=== PATIENT | female | born 1955 | race Caucasian/White ===

== ENCOUNTER → 2020-05-18 10:37 | Outpatient (BNVA) | payer MEDICARE, MEDICAID, SELFPAY | PROVIDERS: PCP Family Medicine; Visit Provider Nurse Practitioner Family | DX: E11.9 Type 2 diabetes mellitus without complications (principal); I10 Essential (primary) hypertension; G47.33 Obstructive sleep apnea (adult) (pediatric); M25.561 Pain in right knee; M25.562 Pain in left knee; I25.10 Atherosclerotic heart disease of native coronary artery without angina pectoris; K21.9 Gastro-esophageal reflux disease without esophagitis; I48.0 Paroxysmal atrial fibrillation; E55.9 Vitamin D deficiency, unspecified | CPT/HCPCS: 80053; 80061; 82043; 82306; 83036; 84443; 85025 ==

== ENCOUNTER 2020-06-28 20:00 | Outpatient (CLI) | payer MEDICARE, MEDICAID, SELFPAY | END 2020-06-28 20:01 | disposition home or self-care (01) | LOC: SLEEP 06-29 10:21 | PROVIDERS: PCP Family Medicine; Visit Provider Nurse Practitioner Family | DX: G47.33 Obstructive sleep apnea (adult) (pediatric) (principal) | CPT/HCPCS: 95811 ==

== ENCOUNTER → 2020-06-29 17:13 | Outpatient (BNVA) | payer MEDICARE, MEDICAID, SELFPAY | PROVIDERS: PCP Family Medicine; Visit Provider Nurse Practitioner Family | DX: R10.12 Left upper quadrant pain (principal) | CPT/HCPCS: 80053; 82150; 83690; 85025 ==

== ENCOUNTER 2020-07-06 12:59 | Outpatient (CLI) | payer MEDICARE, MEDICAID, SELFPAY ==
--- NOTE | 2020-07-06 14:30 | CT_ITS ---
WS: [id number] CT ABDOMEN PELVIS TECHNIQUE: Noncontrast CT of the abdomen and pelvis with coronal and sagittal reformatted images. CLINICAL INFORMATION: LUQ abdominal pain; left low back pain COMPARISON: 5 5014 DLP: 1191.[address] scans at [facility] use at least one of these dose optimization techniques: automat ed exposure control; mA and/or kV adjustment per patient size (includes targeted exams where dose is matched to clinical indication); or iterative reconstruction. FINDINGS: Diffuse fatty infiltration liver. Cholecystectomy clips. Normal spleen. Lung bases are well aerated. Adrenal glands are normal. No hydronephrosis. A few prominent lymph nodes in the lázaro hepatis likel y reactive. No obstructing renal or ureteral calculi. No hydronephrosis. Normal caliber abdominal aor ta. Shotty periaortic lymph nodes. Prior hysterectomy and appendectomy. Incidental fat-containing umb ilical hernia. Small esophageal hiatal hernia. Rotational abnormalities of the intestines as previously described with Cecum just the left of midline with the remainder the colon left side of the abdomen. Majority of the small bowel right side of the abdomen. No small or large bowel obstruction. Sigmoid diverticulosis. No evidence of acute diverticulitis. No free fluid in the abdomen or pelvis. No inguinal lymphadenopathy. Disc osteophyte bulging L2-3 with mild central canal stenosis. CT/CT abdomen pelvis wo con [id number] IMPRESSION: 1. No obstructing renal or ureteral calculi. No hydronephrosis. 2. Diffuse fatty infiltration liver. 3. Cholecystectomy clips. 4. Diverticulosis. No evidence of acute diverticulitis. No other significant f indings.
== END 2020-07-06 13:00 | disposition home or self-care (01) ==
LOC: RADWPI 13:06
PROVIDERS: PCP Family Medicine; Visit Provider Nurse Practitioner Family
DX: R10.12 Left upper quadrant pain (principal); M54.5 Low back pain; K76.0 Fatty (change of) liver, not elsewhere classified; K57.90 Diverticulosis of intestine, part unspecified, without perforation or abscess without bleeding
CPT/HCPCS: 74176

== ENCOUNTER 2020-07-21 11:02 | Outpatient (CLI) | payer MEDICARE, MEDICAID, SELFPAY ==
--- NOTE | 2020-07-21 11:00 | MM_ITS ---
WS: [id number] BILATERAL SCREENING DIGITAL MAMMOGRAM WITH CAD HISTORY: screening COMPARISON: 10/06/2018 Bilateral CC and MLO views submitted. Computer aided detection analyzed. Breast composition: There are scattered areas of fibroglandular density. No suspicious masses, microc alcifications or architectural distortion. Benign calcification LEFT breast. MM/[place] [id number] IMPRESSION: BI-RADS: 2-Benign FOLLOW UP: 1 Year Follow-up
== END 2020-07-21 11:03 | disposition home or self-care (01) ==
LOC: RADSHAW 11:02
PROVIDERS: PCP Nurse Practitioner Family; Visit Provider Nurse Practitioner Family
DX: Z12.31 Encounter for screening mammogram for malignant neoplasm of breast (principal)
CPT/HCPCS: 77067

== ENCOUNTER 2020-09-19 07:54 | Outpatient (CLI) | payer MEDICARE, MEDICAID, SELFPAY ==
[2020-09-19 08:24] VITALS: BMI 37.1
--- NOTE | 2020-09-19 09:26 | NMCV_ITS ---
NM papo perf SPECT r/s* [id number] Talia Abbasi Age: 64 Gender: F : 1955 Exam Date: 09/19/2020 09:16 Ordering Phys: Federico Morrison M.D ([email or web address]) Technologist: ROEL Garcias Exam Location: [facility] Indications: CHEST PAIN STRESS TEST Please [facility] IMAGE PROTOCOL Rest/Stress 1 Lexiscan Day Radiopharmaceutical Dose (mCi) Administration Site Administered by Rest: Tc-99m 10.8 IV ROEL Garcias Sestamibi Stress:Tc-99m 32.7 IV OREL Garcias Sestamibi Rest: 19-Sep-2020 60 Discovery 630 Stress: 19-Sep-2020 30 Discovery 630 0.4mg Lexiscan. Supine position only as patient was unable to lay prone. SPECT RESULTS Technical Quality: Excellent Raw Data Analysis: Normal Image Corrections: No attenuation or motion correction applied Summed Stress Score: 0 Summed Rest Score: 0 Summed Difference Score: 0 PERFUSION FINDINGS There is a medium sized, anterior wall reversible perfusion defect noted. Rest of myocardium has homogenous radiotracer uptake. FUNCTIONAL RESULTS (calculated via Gated SPECT) Stress Image LV EF (%): 78 Stress EDV (mL):99 TID: 0.98 Stress ESV (mL):22 FUNCTIONAL FINDINGS: LV systolic function is normal with EF of 78% IMPRESSIONS 1. Myocardial perfusion imaging shows anterior wall reversible defect in the anterior wall. This likely represents ischemia. Clinical correlation is required. 2. LV systolic function is normal with EF of 78% stenosis. Federico Morrison MD (Electronically Signed) Final Date: 21 September 2020 19:18 S
--- NOTE | 2020-09-19 09:26 | ECG_ITS ---
[facility] Test Date: 2020-09-19 Pat Name: Talia Abbasi Department: Room: Gender: Female Sas Bi Developer: Margareth Alvarado : 1955 Requested By: Federico Morrison Order Number: [id number] Steve MD: Federico Morrison M.D. Interpretive Statements NAME OF STUDY: LEXISCAN SESTAMIBI STRESS TEST INDICATION: [Chest Pain, ] Procedure: The baseline blood pressure was 147/89 mmHg with a heart rate of 80 bpm. The electrocardiogram showed normal sinus rhythm with normal ST and T's. The Lexiscan was infused for a duration of 20 seconds. A total of 0.4 mg of Lexiscan was infused. The stress phase was continued for a total of 5 minutes. Heart rate at end of stress phase was 94 bpm, with a blood pressure 127/76 mmHg. The EKG at the peak infusion revealed sinus rhythm with no significant ST-T wave changes. Sestamibi was injected 20 seconds after Lexiscan infusion. Blood pressure at the end of recovery phase was 133/79 mmHg with a heart rate of 88 bpm. No significant changes during recovery phase. Conclusion: 1. Normal EKG response to Lexiscan infusion. 2. No Lexiscan induced chest pain or cardiac arrhythmia. 3. Normal blood pressure and heart rate response. 4. Sestamibi/sestamibi perfusion scan pending; see separate report. Electronically Signed On 09-22-2020 19:10:34 CULINARY ART TEACHER by Federico Morrison M.D. [id number]
[2020-09-19 10:22] VITALS: BP 137/90; PULSE 99
[2020-09-19] MEDS: regadenoson 0.4 Mg/5 ml Syringe IVP (10:22)
--- NOTE | 2020-09-19 11:45 | USCV_ITS ---
Ayleen Talia Age: 64 Gender: F : 1955 Exam Date: 09/19/2020 08:14 Ordering Phys: Federico Morrison M.D ([email or web address]) Technologist: Danna Falcon [place] [facility] [place]ication: SOB Risk Factors: Previous Vascular Surgery: Right Brachial BP: / Left Brachial BP: / Right Left Velocity (cm/s) Spectral Plaque Velocity (cm/s) Spectral Plaque Syst/Diast Broadening Syst/Diast Broadening 97.40/ 29.10 Prox CCA 88.10 / 27.60 73.50/ 22.20 Mid CCA 102.50/ 25.00 74.30/ 25.60 Distal CCA 60.70 / 20.50 41.00/ 18.80 Prox ICA 64.90 / 24.80 87.20/ 35.00 Mid ICA 70.90 / 30.80 80.30/ 39.30 Distal ICA 55.50 / 24.80 88.00 ECA 37.50 1.19 ICA/CCA 0.69 Antegrade Vertebral Antegrade 54.70/ 14.50 cm/s 25.60/ 7.70 cm/s Tri Subclavian Tri 99.90 87.20 FINDINGS Minimal plaques at the bifurcations bilaterally. Intimal thickening in the common carotid arteries bilaterally. Antegrade flow in the vertebral arteries bilaterally. Normal Doppler flow velocities in the external carotid arteries bilaterally CONCLUSIONS Minimal plaques at the bifurcations bilaterally Intimal thickening in the common carotid arteries bilaterally. No significant stenosis, based on the above findings. Dr Abe Lopez MD [facility] (Electronically Signed) Final Date: 19 September 2020 19:08 S
--- NOTE | 2020-09-19 12:30 | USCV_ITS ---
Talia Abbasi Age: 64 Gender: F : 1955 Exam Date: 09/19/2020 08:51 Ordering Phys: Federico Morrison M.D ([email or web address]) Technologist: Vlad Hernandez Exam Location: [facility] [place] Indication: CHEST PAIN BP: 132 / 74 HR: 76 Rhythm: Sinus Technical Quality: Fair MEASUREMENTS (Male / Female) Normal Values 2D ECHO LV Diastolic Diameter PLAX 4.6 cm 4.2 - 5.9 / 3.9 - 5.3 cm LV Systolic Diameter PLAX 3.3 cm IVS Diastolic Thickness 1.2 cm 0.6 - 1.0 / 0.6 - 0.9 cm IVS Systolic Thickness 1.5 cm LVPW Diastolic Thickness 0.9 cm 0.6 - 1.0 / 0.6 - 0.9 cm LVPW Systolic Thickness 1.2 cm LVOT Diameter 2.0 cm LV Ejection Fraction 2D Teich 56.1 % LV Ejection Fraction MOD 2C 66.1 % LV Ejection Fraction 2C AL 66.4 % LA Diameter 4.0 cm LA Width 3.8 cm LA Height 3.5 cm RA Width 3.5 cm RA Height 4.2 cm M-MODE LV Diastolic Diameter MM 5.2 cm 4.2 - 5.9 / 3.9 - 5.3 cm LV Systolic Diameter MM 3.2 cm LV Ejection Fraction MM Teich 69.2 % IVS Diastolic Thickness MM 1.2 cm 0.6 - 1.0 / 0.6 - 0.9 cm IVS Systolic Thickness MM 1.9 cm LVPW Diastolic Thickness MM 1.0 cm 0.6 - 1.0 / 0.6 - 0.9 cm LVPW Systolic Thickness MM 1.6 cm RV Diastolic Diameter MM 2.0 cm Aortic Annulus Diameter 3.2 cm LA Ao Ratio MM 1.4 MV E Point Septal Separation 0.8 cm DOPPLER AV Peak Velocity 118.0 cm/s LVOT Peak Velocity 84.0 cm/s AV Area Cont Eq vti 2.8 cm squared AV Area Cont Eq pk 2.3 cm squared MV Area PHT 5.0 cm squared Mitral E to A Ratio 1.0 MV E' Velocity 47.0 cm/s Mitral E to MV E' Ratio 8.8 Mitral E to LV E' Lateral Ratio 8.0 Mitral E to LV E' Septal Ratio 9.8 TR Peak Velocity 215.3 cm/s TR Peak Gradient 18.5 mmHg Right Atrial Pressure 3.0 mmHg Pulmonary Artery Systolic Pressu 21.5 mmHg PV Peak Velocity 121.0 cm/s FINDINGS Left Ventricle Normal left ventricular size and systolic function with no regional wall motion abnormalities. LVEF is 55-60%. Normal diastolic filling pattern. Right Ventricle The right ventricle is normal in size and function. There is a pacemaker wire noted in the RV Right Atrium The right atrium is normal in size. There is a pacemaker wire noted in the RA Left Atrium The left atrium is normal in size. Mitral Valve Structurally normal mitral valve without significant stenosis or prolapse. There is no mitral regurgitation. Aortic Valve Grossly normal. No significant aortic stenosis is noted. There is no aortic regurgitation. Tricuspid Valve Structurally normal tricuspid valve without significant stenosis or regurgitation. Insuffiecient TR jet to calculate RVSP. Pulmonic Valve Structurally normal pulmonic valve without significant stenosis. There is no pulmonic regurgitation. Pericardium Normal pericardium without effusion. Aorta Normal ascending aorta dimension. CONCLUSIONS LV systolic function is normal with EF of 55-60% Diastolic function is normal Pacemaker wire is present in RA and RV Compared to prior study from 11/24/2014, no significant changes are noted Federico Morrison MD (Electronically Signed) Final Date: 19 September 2020 18:19 S
== END 2020-09-19 07:55 | disposition home or self-care (01) ==
PROVIDERS: PCP Family Medicine; Visit Provider Internal Medicine
DX: I65.23 Occlusion and stenosis of bilateral carotid arteries (principal); R06.02 Shortness of breath; R07.9 Chest pain, unspecified; Z95.9 Presence of cardiac and vascular implant and graft, unspecified
CPT/HCPCS: 78452; 93017; 93306; 93880; A9500; J2785

== ENCOUNTER 2020-10-05 11:39 | Outpatient (CLI) | payer MEDICARE, MEDICAID, SELFPAY ==
[2020-10-05 12:12] LABS: Basophils % 0.2 %; Eosinophils # 0.1 10^3/uL (0.0-0.8); Eosinophils % 1.3 %; Hematocrit 43.8 % (37.0-47.0); Hemoglobin 13.4 g/dL (11.5-15.3); Lymphocytes # 2.1 10^3/uL (0.8-4.8); Lymphocytes % 21.8 %; Mean Corpuscular HGB Conc 30.6 g/dL (30.0-36.0); Mean Corpuscular Hemoglobin 26.2 pg (28.0-34.0); Mean Corpuscular Volume 85.7 fL (81-99); Mean Platelet Volume 11.6 fL (7.4-10.4); Monocytes # 0.4 10^3/uL (0.2-0.9); Monocytes % 4.3 %; Neutrophils # 7.07 10^3/uL (1.8-7.7); Neutrophils % 72.1 %; Nucleated Red Blood Cells % 0 %; Platelet Count 260 10^3/cmm (130-400); Red Blood Count 5.11 10^6/uL (4.1-5.3); Red Cell Distribution Width 14.4 % (12.1-15.1); White Blood Count 9.8 10^3/uL (4.0-10.0)
[2020-10-05 12:31] LABS: INR 1.04 (0.8-1.2)
[2020-10-05 12:39] LABS: Blood Urea Nitrogen 11 mg/dL (8-23); Carbon Dioxide 25 mmol/L (22-29); Chloride 102 mmol/L (98-107); Glomerular Filtration Rate 124.6 mL/min (90-130); Glucose 150 mg/dL (65-115); Osmolality Calculated 286 mOsm/kg (285-295); Sodium 137 mmol/L (136-145)
[2020-10-05 12:40] LABS: Anion Gap 13.7 (5-19); Potassium 3.7 mmol/L (3.5-5.1)
== END 2020-10-05 11:40 | disposition home or self-care (01) ==
PROVIDERS: PCP Family Medicine; Visit Provider Internal Medicine
DX: R07.9 Chest pain, unspecified (principal); R06.02 Shortness of breath; R94.39 Abnormal result of other cardiovascular function study
CPT/HCPCS: 36415; 80048; 85025; 85610; 87635

== ENCOUNTER 2020-10-10 05:40 | Day surgery (SDC) | payer MEDICARE, MEDICAID, SELFPAY ==
[2020-10-10] VITALS (14 sets, daily range): BP systolic 96–167; BP diastolic 59–103; PULSE 60–78; RESP 12–20; TEMP 36.2; O2SAT 90–98; BMI 41.8
--- NOTE | 2020-10-10 06:00 | XACV_ITS ---
Ht: 165 cm Wt: 114 kg BSA: 2.34 m2 Gender: Female : 1955 Any Known Allergies: No known allergies Exam Priority: Routine Procedure(s): Procedure Description: Diagnostic procedure Procedure Description: Coronary Angiography Procedure Description: Left heart cath Diagnostic Cath Status: Elective Diagnostic Findings * Left main artery: Arises from left coronary cusp. Has mild luminal irregularities. LAD: It is a large wraparound vessel. It gives rise to a large diagonal branch. No significant disease is noted. Left circumflex artery: It arises from left main artery. It gives rise to a medium sized OM branch. No significant disease is noted in left circumflex artery. RCA: Arises from right coronary cusp. It gives rise to PDA and PLV branch. No significant stenosis is noted.. * No significant disease noted in the Left Main, LAD, Circumflex, or RCA coronary arteries. * Coronary angiography shows right dominance. PCI Status: Elective Conclusions 1. Mild aortic stenosis with mean gradient of 13mmHg. 2. Elevated LVEDP. 3. No significant disease noted in the Left Main, LAD, Circumflex, or RCA coronary arteries. Recommendations * Aggressive risk factor modification. * Given elevated LVEDP, we will initiate Lasix for 2 weeks. Pressures Phase:Rest AO : 119 / 75 ( 98 ) @ 2:02:00 AM LV : 144 / 7 / @ 2:02:00 AM 142 / 7 / @ 2:02:00 AM Valves Phase:DefaultPhase AV : 22.0 @ 8:09:35 AM AV Mean Gradient: 13.0 @ 8:09:35 AM Clinical Evaluation EBL: 5mL-10mL Procedural Details Procedure Consent Obtained. Pre-Procedure Time Out. Identified patient by full name and date of as verbalized by the patient/guarantor. Does the consent match the physician's order: Yes. Accurate & Complete Informed Consent: Yes. Inpatient/Outpatient History & Physical on Chart: Yes. If H&P is completed, is and addenduem needed: No; If yes, is the addendum complete: N/A. Visualize and Verify Site with Patient/Guarantor: N/A. Relevant Radiology Images available: Yes. Pre-op teaching completed and patient verbalized understanding. The risks, benefits, and alternatives of sedation and/or procedure were discussed by physician. The patient agrees to continue. Procedure started. Correct patient, site and procedure confirmed by cath team. Current diagnosis: Chest Pain. PERRLA. Strong, equal hand electrician marine bilaterally. Lungs clear x 5 lobes. IV Site on Arrival: 22 gauge in the left anticubital. IV Fluids: 0.9% NaCl at KVO. 0 mL infused prior to cardiac cath lab radiology technologist. Pre Procedural Pulses: bilateral dorsalis pedis was 3+. Pre Procedural Pulses: bilateral posterior tibial was 1+. Pre Procedural Pulses: bilateral radial was 2+. Oxygen started at 2liters/min via nasal canula. bilateral groins was prepped with chloroprep then draped in the usual sterile fashion. right radial was prepped with chloroprep then draped in the usual sterile fashion. Physician notified. Physician arrived. Equipment: 6F - Radial. Cardiac Cath Pack. ACIST Manifold Kit Model BT 2000. Heparinized Saline (2 units/mL), 1000 mL bag. Baseline sample Acquired. HR: 72 BPM. Physician scrubbed in. Immediate Pre-Procedure Time Out. Correct Patient: Yes; Correct Procedure: Yes; Correct Site: Yes; Correct Patient Position: Yes; Correct Supplies: Yes; Dried Flammable Prep: Yes; Blood Products Available: No;. Ultrasound contacted. Lidocaine 1% infiltrated to the right radial. Arterial access obtained. A 6 jamaican TIG catheter in over wire. Multiple views taken of left coronary artery. Catheter redirected to the RCA. Multiple views taken of right coronary artery. Catheter out. A 6 jamaican Angled Pig catheter in over wire. EDP Sample taken: LV 144/7,25; HR: 84 BPM; SpO2: 97%. Pullback taken: LV 142/7,26; AO 119/75(98); Mean: 13mmHg, Peak to Peak: 22mmHg, SEP: 27sec/min; HR: 85 BPM; SpO2: 96%. Catheter out. TR band placed. Hemostasis obtained. Post Procedure: Pulses reassessed and unchanged. PERRLA. Strong, equal hand electrician marine bilaterally. No VTE prophylaxis required. Medication's Wasted: Heparin = 1000 units. Medication's Wasted: Nitro = 49.8 mg. Medication's Wasted: Lidocaine 1% = 14 mL. Total IV fluids: 50 mL. Contrast type used: Omnipaque 300 mgI/mL, 500 mL bottle. Post-op diagnosis: Non obstructive CAD. [facility] Clinical Fraility Score: 3: Managing Well. Gas Mask Assembler Indications: Suspected CAD. Chest Pain Symptom Assessment: Typical Angina Symptoms. Cardiovascular Instability: No. A TR Band was successful obtaining hemostatsis at the Right Radial artery insertion site. Complications: None. Estimated blood loss: 5mL-10mL. Procedure completed. Vital chart was stopped. Patient transferred by wheelchair to 1st floor. Access Site Site: Right Radial artery Sheath Size: 6 Fr Hemostasis Method: TR Band Hemostasis Success: Successful Procedure Medications Start: 7:30 AM Stop: 7:30 AM Medication: Versed Amount: 1 mg Route: I.V. Start: 7:31 AM Stop: 7:31 AM Medication: Fentanyl Amount: 50 mcg Route: I.V. Start: 7:39 AM Stop: 7:39 AM Medication: Versed Amount: 1 mg Route: I.V. Start: 7:42 AM Stop: 7:42 AM Medication: Fentanyl Amount: 50 mcg Route: I.V. Start: 7:50 AM Stop: 7:50 AM Medication: Nitrogylcerin Amount: 200 mcg Route: I.A. Start: 7:53 AM Stop: 7:53 AM Medication: Heparin Amount: 5000 units Route: I.V. I, the attending physician, have reviewed and verified all procedure medications. Yes, all medications given per verbal order History/Risk Factors Hypertension: Yes Dyslipidemia: Yes Peripheral Arterial Disease (PAD): No Myocardial Infarction (MD): No Obesity: No Renal Disease: No Tobacco Use: Never Prior Interventions PCI: No CABG: No Valve Surgery: No Report Signatures Finalized by Federico Morrison MD on 10/10/2020 11:09 AM
[2020-10-10] MEDS: diphenhydrAMINE 50 mg Capsule PO (06:21)
--- NOTE | 2020-10-10 07:23 | P.HP_ITS ---
Providers/Chief Complaint Primary Care Provider: Gail Reddy MD History of Present Illness 64-year-old female with past medical history of sick sinus syndrome with a pacemaker, history of TIA, obstructive sleep apnea, mitral valve prolapse, nonobstructive coronary artery disease, atrial fibrillation, anticoagulation with Pradaxa, diabetes, hypertension, PSVT is here for follow-up. According to patient for the last 2-3 months she has been feeling significant shortness of breath and fatigue.. She has also noted chest pain on exertion. The symptoms are new for her. She says that she has been feeling lack of energy and gets really short of breath even doing everyday activities like going to the bathroom. Chest pain is mostly exertional and gets resolved with resting. It is 4-5/10 in intensity. Assoicated with shortness of breath. Patient underwent nuclear stress test that showed anterior wall ischemia. LV systolic function on echocardiogram is normal. Review of Systems Narrative: CONSTITUTIONAL: No fever chills weight loss or gain or night sweats. [] HEENT: Normocephalic, atraumatic.[] RESPIRATORY: Shortness of breath, no cough, sputum, hemoptysis or wheezing.[] CARDIOVASCULAR: Shortness of breath, chest pain, no PND, orthopnea, lower extremity edema, presyncope or syncope. [] GI: no nausea vomiting diarrhea. [] DESIGN TECHNOLOGY PROFESSOR: No numbness, tingling, weakness or loss of function in any part of the body. [] MUSCULOSKELETAL: No knee or joint pain or rashes. [] Medications/Allergies Home Medications Medication Instructions Recorded Confirmed Last Taken Type cholecalciferol (vitamin D3) 50 50 mcg PO DAILY 03/30/20 10/10/20 10/08/20 20:00 History mcg (2,000 unit) capsule nitroglycerin 0.4 mg sublingual 0.4 mg SUBLINGUAL Q5M PRN 03/30/20 10/07/20 Unknown History tablet atorvastatin 40 mg tablet 40 mg PO DAILY #90 tab 05/18/20 10/10/20 10/08/20 20:00 Rx citalopram 20 mg tablet 20 mg PO DAILY #90 tab 05/18/20 10/10/20 10/08/20 20:00 Rx dabigatran etexilate 150 mg capsule 150 mg PO BID #180 cap 05/18/20 10/10/20 10/08/20 20:00 Rx digoxin 250 mcg (0.25 mg) tablet 250 mcg PO DAILY #90 tab 05/18/20 10/07/20 Unknown Rx diltiazem HCl 120 mg capsule,24 120 mg PO DAILY #90 cap 05/18/20 10/10/20 10/08/20 20:00 Rx hr,extended release famotidine 20 mg tablet 20 mg PO DAILY #90 tab 05/18/20 10/10/20 10/08/20 20:00 Rx glucometer test strips #90 each 05/18/20 08/26/20 Unknown Rx metformin 500 mg tablet 500 mg PO BID #180 tab 05/18/20 10/10/20 10/08/20 20:00 Rx sitagliptin 100 mg tablet 100 mg PO DAILY #90 tab 05/18/20 10/10/20 10/08/20 20:00 Rx cyclobenzaprine 10 mg tablet 10 mg PO TID PRN #30 tab 06/29/20 10/10/20 10/08/20 20:00 Rx diclofenac sodium 75 mg 75 mg PO BID PRN #60 tab 06/29/20 10/10/20 10/08/20 20:00 Rx tablet,delayed release cyanocobalamin (vitamin B-12) 1,000 mcg IM .monthly #10 ml 07/12/20 10/10/20 10/08/20 20:00 Rx 1,000 mcg/mL injection solution C-PAP #1 ea 07/15/20 08/26/20 Unknown Rx Allergies Allergy/AdvReac Type Severity Reaction Status Date / Time No Known Allergies Allergy Verified 08/04/20 10:51 PFSH Acute PFSH: Medical History (Updated 10/10/20 @ 07:27 by Federico Morrison M.D) Anticoagulant long-term use Pradaxa ASHD (arteriosclerotic heart disease) Diabetes Fibromyalgia GERD (gastroesophageal reflux disease) HTN (hypertension) MVP (mitral valve prolapse) MARIEL (obstructive sleep apnea) Paroxysmal atrial fibrillation PSVT (paroxysmal supraventricular tachycardia) Sick sinus syndrome TIA (transient ischemic attack) Surgical History H/O adenoidectomy S/P cholecystectomy S/P tonsillectomy Status cardiac pacemaker Family History Mother CAD (coronary artery disease) Father CAD (coronary artery disease) Other Cancer Diabetes Social History Smoking and tobacco status: never smoked Second hand smoke exposure: No Lives independently: Yes Marital status: Current occupational status: disabled History of recent travel: No Current gender identity: Female Vitals/I&O/Wt Last Vital Signs Temp 97.1 F L 10/10/20 06:22 Pulse 77 10/10/20 06:22 Resp 16 10/10/20 06:22 BP 142/87 10/10/20 06:22 Pulse Ox 94 10/10/20 06:22 Weight last 48 hrs Weight 251 lb Physical Exam Narrative: EXAM NARRATIVE: GENERAL: Patient is alert, awake and oriented x3. [] NECK: No jugular vein distension. [] HEENT: No cyanosis. No icterus. No pallor. [] HEART: Regular S1 and S2. No murmur, rub or gallop. [] LUNGS: Clear to auscultate bilaterally. [] ABDOMEN: Soft, nontender and nondistended. Positive bowel sounds. No guarding, rebound or tenderness. [] CENTRAL NERVOUS SYSTEM: Grossly nonfocal. [] EXTREMITIES: Lower extremities with no edema bilaterally. Pulses palpable in the lower extremities, both dorsalis pedis and posterior tibial. [] A&P Assessment and plan (1) Chest pain: Status: Acute (2) HTN (hypertension): Status: Acute (3) Diabetes: Status: Acute (4) Abnormal stress test: Status: Acute Patient has been having significant dyspnea on exertion and chest pain over the last 2 to 3 months. She underwent nuclear stress test that shows anterior wall ischemia. Plan is for left heart cath/right heart cath/possible percutaneous coronary intervention. I have discussed in detail the risks and benefits of the procedure. Risks including bleeding, infection, abnormal heart rhythm, abnormal kidney function, heart attack, stroke or have been described. Patient understands the risks and benefits and wants to proceed with the procedure. He has been off Pradaxa for the last 3 days. Attestations Medical Necessity Statement*: Care not expected to cross 2 midnights. Coding Level of Care Code Acute Manager Scientific for [facility] Fwd Diagnoses Chest pain R07.9 HTN (hypertension) I10 Diabetes E11.9 Abnormal stress test R94.39
--- NOTE | 2020-10-10 08:15 | PC.NURSE ---
cpru received patient from cath lab tech post [facility] with no intervention. pt alert and oriented x3. ambulated from wheelchair with no incident. tr band in place, clean, dry, and intact. pt reminded the restrictions to right arm. pt acknowledged understanding. pt place on monitor and vital taken every 15 minutes. will continue to monitor per protocol.
--- NOTE | 2020-10-10 09:30 | PC.NURSE ---
tr band starting to release air from tr band. no hematoma noted and pt complains of no pain. pt stable and will continue to monitor.
--- NOTE | 2020-10-10 10:39 | PC.NURSE ---
tr band tr band removed without incident. no hematoma, clean and dry. pt reminded again of restrictions and risks of bleeding. pt verbally acknowledged understanding.
== END 2020-10-10 11:43 | disposition home or self-care (01) ==
PROVIDERS: PCP Family Medicine; Visit Provider Internal Medicine
DX: R07.9 Chest pain, unspecified (principal); I10 Essential (primary) hypertension; E11.9 Type 2 diabetes mellitus without complications; R94.39 Abnormal result of other cardiovascular function study; Z95.0 Presence of cardiac pacemaker; Z86.73 Personal history of transient ischemic attack (TIA), and cerebral infarction without residual deficits; G47.33 Obstructive sleep apnea (adult) (pediatric); I25.10 Atherosclerotic heart disease of native coronary artery without angina pectoris; Z79.01 Long term (current) use of anticoagulants; M79.7 Fibromyalgia; I48.0 Paroxysmal atrial fibrillation; Z82.49 Family history of ischemic heart disease and other diseases of the circulatory system
CPT/HCPCS: 12345; 36415; 93452; C1769; C1887; C1894; J1644; J2250; J3010; J3490; J7030; Q0163; Q9967

== ENCOUNTER → 2020-10-17 09:38 | Outpatient (BNVA) | payer MEDICARE, MEDICAID, SELFPAY | PROVIDERS: PCP Family Medicine; Visit Provider Nurse Practitioner Family | DX: I25.10 Atherosclerotic heart disease of native coronary artery without angina pectoris (principal); I50.30 Unspecified diastolic (congestive) heart failure | CPT/HCPCS: 80048; 83880 ==

== ENCOUNTER 2020-11-03 14:15 | Outpatient (CLI) | payer MEDICARE, MEDICAID, OTHER, SELFPAY ==
--- NOTE | 2020-11-03 14:47 | XR_ITS ---
WS: [id number] Cervical spine, 3 views, 11/03/2020 Clinical Data: rule out rheumatoid arthritis related cervical pathology Comparison: None. Findings: No compression fractures are seen. There is anterior osteoarthritic spurring from C5 throug h C7. There is disc space narrowing at C5-C6 and C6-C7. A permanent pacemaker is visible in the upper chest. There is no prevertebral soft tissue swelling. The odontoid is unremarkable. The soft tissues of the neck and the lung apices are normal. XR/XR cervical spine 3V* 50092 Impression: 1. 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 2. No evidence of rheumatoid arthritis of the cervical spine.
[2020-11-04 14:43] LABS: Anti-Double Strand DNA AB 4 IU/mL; JO-1 Antibody <1.0 NEG AI (<1.0 NEG); Jo-1 Antibody <1.0 NEG AI (<1.0 NEG); SM/RNP Antibodies <1.0 NEG AI (<1.0 NEG); SS-B/LA IGG <1.0 NEG AI (<1.0 NEG); Scleroderma Ab(Scl-70) Ab <1.0 NEG AI (<1.0 NEG); Ss-A/Ro Igg <1.0 NEG AI (<1.0 NEG)
[2020-11-04 16:48] LABS: Immunoglobulin E 17 kU/L (<OR=114)
== END 2020-11-03 14:16 | disposition home or self-care (01) ==
PROVIDERS: PCP Family Medicine; Visit Provider Internal Medicine Pulmonary Disease
DX: M46.92 Unspecified inflammatory spondylopathy, cervical region (principal); R06.00 Dyspnea, unspecified; J84.9 Interstitial pulmonary disease, unspecified
CPT/HCPCS: 36415; 72040; 82785; 86225; 86235

== ENCOUNTER → 2020-11-04 09:00 | Outpatient (BNVA) | payer MEDICARE, MEDICAID, SELFPAY | PROVIDERS: PCP Family Medicine; Visit Provider Internal Medicine Pulmonary Disease | DX: R06.00 Dyspnea, unspecified (principal) | CPT/HCPCS: 87635 ==

== ENCOUNTER → 2020-11-09 10:44 | Outpatient (BNVA) | payer MEDICARE, MEDICAID, SELFPAY | PROVIDERS: PCP Family Medicine; Visit Provider Family Medicine | DX: E11.9 Type 2 diabetes mellitus without complications (principal); E55.9 Vitamin D deficiency, unspecified; I47.1 Supraventricular tachycardia; R06.00 Dyspnea, unspecified; I10 Essential (primary) hypertension | CPT/HCPCS: 80053; 80061; 80162; 82306; 83036 ==

== ENCOUNTER 2020-11-10 12:46 | Outpatient (CLI) | payer MEDICARE, MEDICAID, SELFPAY ==
--- NOTE | 2020-11-10 13:30 | PFTS_ITS ---
Date of Study:11/10/20 Date of Dictation: 11/17/2020 MECHANICS: Forced vital capacity (FVC) is normal. Forced expiratory volume in one second (FEV1) is normal. FEV1/FVC is normal. FLOW VOLUME LOOP: Normal . LUNG VOLUMES: Total lung capacity (TLC) is low normal. Residual volume (RV) is mildly reduced. DIFFUSING CAPACITY FOR CARBON MONOXIDE: Normal . INTERPRETATION: The spirometry and gas transfer normal. But low lung volumes suggestive of restrictive lung disease. Please correlate clinically. MTDD
[2020-11-10 13:32] VITALS: BP 131/73; BP 131/78
== END 2020-11-10 12:47 | disposition home or self-care (01) ==
LOC: RT 12:46
PROVIDERS: PCP Family Medicine; Visit Provider Internal Medicine Pulmonary Disease
DX: R06.00 Dyspnea, unspecified (principal)
CPT/HCPCS: 94010; 94618; 94726; 94729

== ENCOUNTER → 2021-03-06 13:09 | Outpatient (BNVA) | payer MEDICARE, MEDICAID, SELFPAY | PROVIDERS: PCP Family Medicine; Visit Provider Family Medicine | DX: L98.9 Disorder of the skin and subcutaneous tissue, unspecified (principal) | CPT/HCPCS: 88304 ==

== ENCOUNTER → 2021-03-21 08:53 | Outpatient (BNVA) | payer OTHER, MEDICARE, MEDICAID, SELFPAY | PROVIDERS: PCP Family Medicine; Visit Provider Internal Medicine | DX: M25.541 Pain in joints of right hand (principal); M25.542 Pain in joints of left hand; Z11.59 Encounter for screening for other viral diseases; R06.00 Dyspnea, unspecified; G89.29 Other chronic pain; M54.2 Cervicalgia; M54.9 Dorsalgia, unspecified; E11.9 Type 2 diabetes mellitus without complications; Z79.84 Long term (current) use of oral hypoglycemic drugs | CPT/HCPCS: 99204 ==

== ENCOUNTER 2021-03-22 10:27 | Outpatient (CLI) | payer MEDICARE, MEDICAID, SELFPAY ==
--- NOTE | 2021-03-22 10:40 | XR_ITS ---
WS: [id number] Left hand, 2 views, 03/22/2021 Clinical Data: M25.541 - Pain in joints of left hand Comparison: None. Findings: No fractures or dislocations are seen. The soft tissues are unremarkable. The joint spaces are normal XR/XR hand LT 2V [id number] Impression: Negative left hand.
--- NOTE | 2021-03-22 10:40 | XR_ITS ---
WS: [id number] Left foot, 2 views, 03/22/2021 Clinical Data: M25.50 - Pain in unspecified joint Comparison: None. Findings: No fractures or dislocations are seen. No bone destruction or erosion is noted. The joint spaces and soft tissues are normal. There is a plantar spur. XR/XR foot LT 2V 62534 Impression: Negative left foot.
--- NOTE | 2021-03-22 10:40 | XR_ITS ---
WS: [id number] Right hand, 2 views, 03/22/2021 Clinical Data: M25.541 - Pain in joints of right hand Comparison: None. Findings: No fractures or dislocations are seen. The soft tissues are unremarkable. The joint space s are normal XR/XR hand RT 2V 51350 Impression: Negative right hand.
--- NOTE | 2021-03-22 10:40 | XR_ITS ---
WS: [id number] Sacroiliac joints, 3 views, 03/22/2021 Clinical Data: L40.9 - Psoriasis, unspecified Comparison: None. Findings: The SI joints are normal in width. No erosion, sclerosis or destruction is seen. There are no fractur es or dislocations. The adjacent visualized pelvis and hips are unremarkable. XR/XR sacroiliac jts m 3V 65926 Impression: Negative SI joints.
--- NOTE | 2021-03-22 10:40 | XR_ITS ---
WS: [id number] Right foot, 2 views, 03/22/2021 Clinical Data: M25.50 - Pain in unspecified joint Comparison: None. Findings: No fractures or dislocations are seen. No bone destruction or erosion is noted. The joint spaces and soft tissues are normal. There is a plantar spur. XR/XR foot RT 2V 55044 Impression: Negative right foot.
--- NOTE | 2021-03-22 11:08 | XR_ITS ---
WS: [id number] Lumbar spine, 3 views, 03/22/2021 Clinical Data: M25.541 - Pain in joints of right hand Comparison: None. Findings: No compression fractures or subluxation is seen. There is minimal disc space narrowing at T12-L1 and L2-L3. The transverse processes and SI joints are normal. There is moderate osteoarthritic spurring of the L1-L3 vertebral bodies. There is osteoarthritic spur ring of the lower thoracic vertebral bodies. There are clips in the right upper quadrant from a stacia cystectomy. XR/XR lumbar spine 2-3V* [id number] Impression: 1. Minimal osteoarthritis of the L1-L3 vertebral bodies. 2. Degenerative disc narrowing at T12-L1 and L2-L3.
[2021-03-22 12:06] LABS: Add Urine Microscopic? NO; Charge for UA Resulting for Rev
[2021-03-22 12:11] LABS: Basophils % 0.2 %; Eosinophils # 0.2 10^3/uL (0.0-0.8); Eosinophils % 1.9 %; Hematocrit 45.1 % (37.0-47.0); Hemoglobin 14.5 g/dL (11.5-15.3); Lymphocytes # 2.5 10^3/uL (0.8-4.8); Lymphocytes % 24.8 %; Mean Corpuscular HGB Conc 32.2 g/dL (30.0-36.0); Mean Corpuscular Hemoglobin 26.8 pg (28.0-34.0); Mean Corpuscular Volume 83.4 fL (81-99); Mean Platelet Volume 11.9 fL (7.4-10.4); Monocytes # 0.9 10^3/uL (0.2-0.9); Monocytes % 9.2 %; Neutrophils # 6.47 10^3/uL (1.8-7.7); Neutrophils % 63.6 %; Nucleated Red Blood Cells % 0 %; Platelet Count 261 10^3/cmm (130-400); Red Blood Count 5.41 10^6/uL (4.1-5.3); Red Cell Distribution Width 15.2 % (12.1-15.1); White Blood Count 10.2 10^3/uL (4.0-10.0)
[2021-03-22 12:40] LABS: Urine Appearance Clear (CLEAR); Urine Color Yellow (Yellow)
[2021-03-22 12:41] LABS: Bilirubin Urine Neg (Negative); Blood Urine Neg (Negative); Glucose Urine UA Norm (Normal); Ketones Urine Negative (Negative); Leukocyte Esterase Urine Negative (Negative); Nitrate Urine Negative (Negative); Protein Urine Neg (Negative); Urobilinogen Urine Norm (Negative); pH Urine 5 (5-7)
[2021-03-22 13:06] LABS: Erythrocyte Sedimentation Rate 20 mm/hr (0-15)
[2021-03-22 13:09] LABS: Alanine Aminotransferase 33 U/L (0-33); Albumin Level 3.7 g/dL (3.5-5.2); Alkaline Phosphatase 121 IU/L (35-105); Anion Gap 12.9 (5-19); Aspartate Amino Transferase 32 U/L (0-32); Blood Urea Nitrogen 9 mg/dL (8-23); C Reactive Protein 9.4 mg/L (0.0-4.9); Calcium 8.7 mg/dL (8.5-10.5); Carbon Dioxide 25 mmol/L (22-29); Chloride 103 mmol/L (98-107); Creatine Phosphokinase 88 U/L (26-192); Ferritin 107 ng/mL (15-150); Globulin 3.3 g/dL (1.3-4.6); Glomerular Filtration Rate 84.5 mL/min (90-130); Glucose 90 mg/dL (65-115); Iron 81 ug/dL (37-145); Osmolality Calculated 282 mOsm/kg (285-295); Phosphorus 3.2 mg/dL (2.5-4.5); Potassium 3.9 mmol/L (3.5-5.1); Sodium 137 mmol/L (136-145); Thyroid Stimulating Hormone 2.48 uIU/mL (0.27-4.20); Total Bilirubin 0.4 mg/dL (0.15-1.2)
[2021-03-22 13:21] LABS: Hepatitis B Core AB, Total Non-Reactive (Nonreactive); Hepatitis B Surface Antigen Non-Reactive (Nonreactive); Hepatitis C Virus Antibody Non-Reactive (Nonreactive)
[2021-03-22 13:24] LABS: Complement C3 151 mg/dL (90-180)
[2021-03-23 17:39] LABS: Alternaria Alternata (M6) Ige <0.10 kU/L; Alternaria Class 0; Bermuda Class 0; Bermuda Grass (G2) Ige <0.10 kU/L; Cat Dander (E1) Ige <0.10 kU/L; Cat Dander Class 0; Common Ragweed (Short) (W1) Ig <0.10 kU/L; D. Farinae Class 0; Dermatophagoides Class 0; Dermatophagoides Farinae (D2) <0.10 kU/L; Dermatophagoides Pteronyssinus <0.10 kU/L; Dog Dander (E5) Ige <0.10 kU/L; Dog Dander Class 0; Elm (T8) Ige <0.10 kU/L; Elm Class 0; English Plantain (W9) Ige <0.10 kU/L; English Plantain Class 0; House Dust (Greer) (H1) Ige <0.10 kU/L; House Dust (Hollister- Stier) <0.10 kU/L; House Dust Class 0; Johnson Grass (G10) Ige <0.10 kU/L; Johnson Grass Cl 0; June Grass Class 0; June Grass(Kentucky Blue) (G8) <0.10 kU/L; Lamb'S Quarters (Goose Foot) <0.10 kU/L; Lamb'S Quarters Class 0; Maple (Box Elder) (T1) Ige <0.10 kU/L; Maple Class 0; Meadow Fescue (G4) Ige <0.10 kU/L; Meadow Fescue Class 0; Mucor Racemosus Class 0; Oak (T7) Ige <0.10 kU/L; Oak Class 0; Orchard Grass (Cocksfoot) (G3) <0.10 kU/L; Penicillium Class 0; Penicillium Notatum (M1) Ige <0.10 kU/L; Perennial Rye Grass (G5) Ige <0.10 kU/L; Perennial Rye Grass Class 0; Ragweeed Class 0; Rough Marsh Elder (W16) Ige <0.10 kU/L; Rough Marsh Elder Class 0; Sweet Vernal Class 0; Sweet Vernal Grass (G1) Ige <0.10 kU/L; Timothy Grass (G6) Ige <0.10 kU/L; Timothy Grass Class 0
[2021-03-24 13:38] LABS: Cyclic Citrullinated Peptide <16 UNITS
[2021-03-24 15:18] LABS: Angiotensin Converting Enzyme 33 U/L (9-67)
[2021-03-24 16:57] LABS: Immunoglobulin E 81 kU/L (<OR=114); Immunoglobulin E 87 kU/L (<OR=114)
[2021-03-27 11:37] LABS: Anti-Nuclear Antibody Pattern Nuclear, Speckled; Anti-Nuclear Antibody Screen POSITIVE (NEGATIVE); Anti-Nuclear Antibody Titer 1:40 titer
[2021-03-27 23:48] LABS: Aspergillus Fumigatus, Igg Ab, 28.6 mg/L (<=102)
== END 2021-03-22 10:28 | disposition home or self-care (01) ==
PROVIDERS: PCP Family Medicine; Referring Provider Internal Medicine Pulmonary Disease; Visit Provider Internal Medicine
DX: M25.541 Pain in joints of right hand (principal); M25.542 Pain in joints of left hand; L40.9 Psoriasis, unspecified; M25.50 Pain in unspecified joint; D86.9 Sarcoidosis, unspecified; Z79.899 Other long term (current) drug therapy; Z51.81 Encounter for therapeutic drug level monitoring; R06.02 Shortness of breath; T78.40XA Allergy, unspecified, initial encounter; Z11.59 Encounter for screening for other viral diseases
CPT/HCPCS: 36415; 72100; 72202; 73120; 73620; 80053; 81003; 82164; 82550; 82728; 82785; 83540; 83735; 84100; 84443; 85025; 85651; 86003; 86038; 86140; 86160; 86431; 86704; 86803; 87340

== ENCOUNTER → 2021-03-30 08:12 | Outpatient (BNVA) | payer MEDICARE, MEDICAID, SELFPAY | PROVIDERS: PCP Family Medicine; Visit Provider Internal Medicine Pulmonary Disease | DX: J98.4 Other disorders of lung (principal) | CPT/HCPCS: 71046 ==

== ENCOUNTER 2021-04-07 08:27 | Outpatient (CLI) | payer MEDICARE, MEDICAID, SELFPAY ==
--- NOTE | 2021-04-07 09:00 | CT_ITS ---
WS: [id number] CT CHEST CT-HIGH RESOLUTION, NONCONTRAST. HISTORY: Interstitial lung disease. Technique: High-resolution chest CT is performed in inspiration, expiration, supine and prone positio beth. All CT scans at [facility] use at least one of these dose optimization techniques: automa pavel exposure control; mA and/or kV adjustment per patient size (includes targeted exams where dose is matched to clinical indication); or iterative reconstruction. DLP: 1871.62 mGycm COMPARISON: Chest radiographs 03/30/2021 Findings: LEFT subclavian dual lead permanent cardiac pacer is noted. 3 mm noncalcified RIGHT upper l obe pulmonary nodule, image 6 of series 5. No bronchiectasis or honeycombing. There is no significant amount of atelectasis. With prone positioning dependent changes become mildly present in the anterio r lungs. On expiration there is good expiration with no significant air trapping. There may be a smal l amount of air trapping in the RIGHT lower lung as there are some lucent areas within the lung. No p leural effusion. Heart size is slightly enlarged. There is a small hiatal hernia. No adenopathy. Hepatic steatosis and prior cholecystectomy. No osteoblastic or osteolytic bone disease. CT/CT chest wo con [id number] Impression: 1. No evidence for interstitial pulmonary fibrosis. 2. Question very minimal air trapping in the RIGHT lower lobe. There is no sig nificant amount of pulmonary restriction. 3. 3 mm nonspecific nodule periphery RIGHT upper lobe is noncalcified.
== END 2021-04-07 08:28 | disposition home or self-care (01) ==
PROVIDERS: PCP Family Medicine; Visit Provider Internal Medicine Pulmonary Disease
DX: J98.4 Other disorders of lung (principal); R91.1 Solitary pulmonary nodule
CPT/HCPCS: 71250

== ENCOUNTER → 2021-04-12 09:09 | Outpatient (BNVA) | payer MEDICARE, MEDICAID, SELFPAY | PROVIDERS: PCP Family Medicine; Visit Provider Internal Medicine | DX: R76.8 Other specified abnormal immunological findings in serum (principal); M54.2 Cervicalgia; J98.4 Other disorders of lung; R79.82 Elevated C-reactive protein (CRP) | CPT/HCPCS: 99214 ==

== ENCOUNTER → 2021-04-19 09:42 | Outpatient (BNVA) | payer MEDICARE, MEDICAID, SELFPAY | PROVIDERS: PCP Family Medicine; Referring Provider Internal Medicine; Visit Provider Anesthesiology Pain Medicine | DX: M47.816 Spondylosis without myelopathy or radiculopathy, lumbar region (principal); M51.36 Other intervertebral disc degeneration, lumbar region; M25.561 Pain in right knee; M25.562 Pain in left knee | CPT/HCPCS: 99205 ==

== ENCOUNTER → 2021-05-15 10:26 | Outpatient (BNVA) | payer MEDICARE, MEDICAID, SELFPAY | PROVIDERS: PCP Family Medicine; Visit Provider Anesthesiology Pain Medicine | DX: M47.816 Spondylosis without myelopathy or radiculopathy, lumbar region (principal); M51.36 Other intervertebral disc degeneration, lumbar region; M25.561 Pain in right knee; M25.562 Pain in left knee | CPT/HCPCS: 99214 ==

== ENCOUNTER 2021-05-16 06:00 | Outpatient (RCR) | payer MEDICARE, MEDICAID, SELFPAY | END 2021-05-20 23:59 | disposition home or self-care (01) | LOC: TPT 06:00 | PROVIDERS: PCP Family Medicine; Referring Provider Anesthesiology Pain Medicine; Visit Provider Anesthesiology Pain Medicine | DX: M54.5 Low back pain (principal); G89.29 Other chronic pain; M47.816 Spondylosis without myelopathy or radiculopathy, lumbar region | CPT/HCPCS: 97110; 97162 ==

== ENCOUNTER 2021-05-21 06:00 | Outpatient (RCR) | payer MEDICARE, MEDICAID, SELFPAY | END 2021-06-20 23:59 | disposition home or self-care (01) | LOC: TPT 06:00 | PROVIDERS: PCP Family Medicine; Referring Provider Anesthesiology Pain Medicine; Visit Provider Anesthesiology Pain Medicine | DX: M54.5 Low back pain (principal); G89.29 Other chronic pain; M47.816 Spondylosis without myelopathy or radiculopathy, lumbar region | CPT/HCPCS: 97110; G0283 ==

== ENCOUNTER → 2021-06-13 10:10 | Outpatient (BNVA) | payer MEDICARE, MEDICAID, SELFPAY | PROVIDERS: PCP Family Medicine; Visit Provider Anesthesiology Pain Medicine | DX: M47.816 Spondylosis without myelopathy or radiculopathy, lumbar region (principal); M51.36 Other intervertebral disc degeneration, lumbar region; M25.561 Pain in right knee; M25.562 Pain in left knee; H60.92 Unspecified otitis externa, left ear; Z79.891 Long term (current) use of opiate analgesic | CPT/HCPCS: 99214 ==

== ENCOUNTER → 2021-06-28 13:14 | Outpatient (BNVA) | payer MEDICARE, MEDICAID, SELFPAY | PROVIDERS: PCP Family Medicine; Visit Provider Anesthesiology Pain Medicine | DX: M47.816 Spondylosis without myelopathy or radiculopathy, lumbar region (principal); Z79.891 Long term (current) use of opiate analgesic | CPT/HCPCS: 64493; 64494; 64495; J3490 ==

== ENCOUNTER → 2021-07-13 09:51 | Outpatient (BNVA) | payer MEDICARE, MEDICAID, SELFPAY | PROVIDERS: PCP Family Medicine; Visit Provider Anesthesiology Pain Medicine | DX: M47.816 Spondylosis without myelopathy or radiculopathy, lumbar region (principal); M51.36 Other intervertebral disc degeneration, lumbar region; Z79.891 Long term (current) use of opiate analgesic | CPT/HCPCS: 99213 ==

== ENCOUNTER → 2021-07-25 12:36 | Outpatient (BNVA) | payer MEDICARE, MEDICAID, SELFPAY | PROVIDERS: PCP Family Medicine; Visit Provider Anesthesiology Pain Medicine | DX: M47.816 Spondylosis without myelopathy or radiculopathy, lumbar region (principal); Z79.891 Long term (current) use of opiate analgesic | CPT/HCPCS: 64493; 64494; 64495; J3490 ==

== ENCOUNTER → 2021-08-17 14:07 | Outpatient (BNVA) | payer MEDICARE, MEDICAID, SELFPAY | PROVIDERS: PCP Family Medicine; Visit Provider Anesthesiology Pain Medicine | DX: M47.816 Spondylosis without myelopathy or radiculopathy, lumbar region (principal); M51.36 Other intervertebral disc degeneration, lumbar region; Z79.891 Long term (current) use of opiate analgesic | CPT/HCPCS: 99213 ==

== ENCOUNTER → 2021-08-24 13:07 | Outpatient (BNVA) | payer MEDICARE, MEDICAID, SELFPAY | PROVIDERS: PCP Family Medicine; Visit Provider Anesthesiology Pain Medicine | DX: Z01.812 Encounter for preprocedural laboratory examination (principal); E11.9 Type 2 diabetes mellitus without complications; M47.816 Spondylosis without myelopathy or radiculopathy, lumbar region; M54.16 Radiculopathy, lumbar region; Z79.891 Long term (current) use of opiate analgesic | CPT/HCPCS: 36416; 64635; 64636; 82962; J1030 ==

== ENCOUNTER → 2021-08-25 09:14 | Outpatient (BNVA) | payer MEDICARE, MEDICAID, SELFPAY | PROVIDERS: PCP Family Medicine; Visit Provider Internal Medicine | DX: M47.816 Spondylosis without myelopathy or radiculopathy, lumbar region (principal); M54.2 Cervicalgia; R76.8 Other specified abnormal immunological findings in serum; R79.82 Elevated C-reactive protein (CRP) | CPT/HCPCS: 99214 ==

== ENCOUNTER → 2021-08-29 12:23 | Outpatient (BNVA) | payer MEDICARE, MEDICAID, SELFPAY | PROVIDERS: PCP Family Medicine; Visit Provider Family Medicine | DX: E11.9 Type 2 diabetes mellitus without complications (principal); I10 Essential (primary) hypertension; I48.0 Paroxysmal atrial fibrillation | CPT/HCPCS: 80061; 83036; 84443 ==

== ENCOUNTER → 2021-08-30 11:25 | Outpatient (BNVA) | payer MEDICARE, MEDICAID, SELFPAY | PROVIDERS: PCP Family Medicine; Visit Provider Internal Medicine | DX: M51.36 Other intervertebral disc degeneration, lumbar region (principal); M54.2 Cervicalgia; R76.8 Other specified abnormal immunological findings in serum | CPT/HCPCS: 80053; 81000; 85025; 85651; 86140; 86160 ==

== ENCOUNTER → 2021-09-20 08:31 | Outpatient (BNVA) | payer MEDICARE, MEDICAID, SELFPAY | PROVIDERS: PCP Family Medicine; Visit Provider Nurse Practitioner Family | DX: Z20.822 Contact with and (suspected) exposure to COVID-19 (principal) | CPT/HCPCS: 87635 ==

== ENCOUNTER → 2021-09-27 11:01 | Outpatient (BNVA) | payer MEDICARE, MEDICAID, SELFPAY | PROVIDERS: PCP Family Medicine; Visit Provider Internal Medicine | DX: M47.816 Spondylosis without myelopathy or radiculopathy, lumbar region (principal); M54.2 Cervicalgia; R76.8 Other specified abnormal immunological findings in serum; R79.82 Elevated C-reactive protein (CRP); Z79.899 Other long term (current) drug therapy | CPT/HCPCS: 83516; 86160; 86162; 86235; 86255; 86376 ==

== ENCOUNTER → 2021-11-13 12:03 | Outpatient (BNVA) | payer MEDICARE, MEDICAID, SELFPAY | PROVIDERS: PCP Family Medicine; Visit Provider Nurse Practitioner Family | DX: Z20.822 Contact with and (suspected) exposure to COVID-19 (principal) | CPT/HCPCS: 87635 ==

== ENCOUNTER → 2022-01-09 16:54 | Outpatient (BNVA) | payer MEDICARE, MEDICAID, SELFPAY | PROVIDERS: PCP Family Medicine; Visit Provider Nurse Practitioner Family | DX: R10.12 Left upper quadrant pain (principal); Z95.0 Presence of cardiac pacemaker; Z68.41 Body mass index [BMI] 40.0-44.9, adult | CPT/HCPCS: 80053; 81000; 82150; 83690; 85025 ==

== ENCOUNTER 2022-01-19 07:38 | Outpatient (CLI) | payer MEDICARE, MEDICAID, SELFPAY ==
--- NOTE | 2022-01-19 07:55 | XR_ITS ---
WS: [id number] Exam: XR chest 2V* [id number] Date/Time of Exam: 01/19/2022 8:01 AM Reason For Exam: PACEMAKER LEAD EVALUATION Comparison 03/30/2021. The lungs are clear and fully inflated. Normal cardiomediastinal silhouette. A cardiac pacer superimp oses the left chest. No pleural effusions. Bony elements are unremarkable. XR/XR chest 2V* [id number] IMPRESSION: 1. No acute cardiopulmonary finding.
== END 2022-01-19 07:39 | disposition home or self-care (01) ==
LOC: RAD 07:40
PROVIDERS: PCP Family Medicine; Visit Provider Thoracic Surgery (Cardiothoracic Vascular Surgery)
DX: Z95.0 Presence of cardiac pacemaker (principal)
CPT/HCPCS: 71046; 99213

== ENCOUNTER → 2022-02-07 13:44 | Day surgery (SDC) | payer MEDICARE, MEDICAID, SELFPAY | PROVIDERS: PCP Family Medicine; Visit Provider Thoracic Surgery (Cardiothoracic Vascular Surgery) | DX: Z01.818 Encounter for other preprocedural examination (principal) | CPT/HCPCS: 93005 ==

== ENCOUNTER 2022-02-13 07:45 | Day surgery (SDC) | payer MEDICARE, MEDICAID, SELFPAY ==
[2022-02-07 13:39] VITALS: BMI 42.3
--- NOTE | 2022-02-07 13:44 | ECG_ITS ---
[facility] Test Date: 2022-02-07 Pat Name: Talia Abbasi Department: Room: Gender: Female Speech Correction Assistant: : 1955 Requested By: Katt Ayers Order Number: [id number] Steve MD: Federico Morrison M.D. Measurements Intervals [place] Rate: 74 P: 42 MI: 162 QRS: 15 QRSD: 86 T: 17 QT: 364 QTc: 406 Interpretive Statements SINUS RHYTHM LOW QRS VOLTAGE IN PRECORDIAL LEADS [QRS DEFLECTION < 1.0 mV IN CHEST LEADS] POSSIBLE ANTERIOR MYOCARDIAL INFARCTION , PROBABLY OLD [30 ms Q WAVE IN V3/V4, OR R < 0.2 mV IN V4] Compared to ECG 04/29/2016 18:42:30 Low QRS voltage now present Myocardial infarct finding now present Poor R-wave progression no longer present Electronically Signed On 02-07-2022 22:26:44 CDT by Federico Morrison M.D. [id number]
[2022-02-07 14:00] LABS: Add Urine Microscopic? NO; Charge for UA Resulting for Rev
[2022-02-07 14:04] LABS: Basophils # 0.1 10^3/uL (0.0-0.1); Basophils % 0.5 %; Eosinophils # 0.2 10^3/uL (0.0-0.8); Hematocrit 46.5 % (37.0-47.0); Hemoglobin 14.9 g/dL (11.5-15.3); Lymphocytes # 2.6 10^3/uL (0.8-4.8); Lymphocytes % 27.7 %; Mean Corpuscular Hemoglobin 26.5 pg (28.0-34.0); Mean Corpuscular Volume 82.6 fl (81-99); Mean Platelet Volume 11.7 fL (7.4-10.4); Monocytes # 0.9 10^3/uL (0.2-0.9); Monocytes % 9.2 %; Neutrophils # 5.66 10^3/uL (1.8-7.7); Neutrophils % 60.4 %; Nucleated Red Blood Cells % 0 %; Platelet Count 233 10^3/cmm (130-400); Red Blood Count 5.63 10^6/uL (4.1-5.3); Red Cell Distribution Width 14.3 % (12.1-15.1); White Blood Count 9.4 10^3/uL (4.0-10.0)
[2022-02-07 14:06] LABS: Urine Appearance Clear (CLEAR); Urine Color Yellow (Yellow)
[2022-02-07 14:07] LABS: Bilirubin Urine Neg (Negative); Blood Urine Neg (Negative); Glucose Urine UA Norm (Normal); Ketones Urine Negative (Negative); Leukocyte Esterase Urine Negative (Negative); Nitrate Urine Negative (Negative); Protein Urine Neg (Negative); Specific Gravity, Urine 1.025 (1.005-1.030); Urobilinogen Urine Neg (Negative); pH Urine 5 (5-7)
[2022-02-07 14:23] LABS: Blood Urea Nitrogen 10 mg/dL (8-23); Calcium 9.3 mg/dL (8.5-10.5); Carbon Dioxide 31 mmol/L (22-29); Chloride 103 mmol/L (98-107); Glomerular Filtration Rate 100.6 mL/min (90-130); Glucose 99 mg/dL (65-115); Osmolality Calculated 293 mOsm/kg (285-295); Sodium 142 mmol/L (136-145)
--- NOTE | 2022-02-07 16:02 | ANES.PREANE2 ---
Pre-Anesthetic Assessment Height/Weight: Height 1.68 m Weight 118.841 kg Preop Diagnosis: pacemaker end of service Operation Date: 02/13/22 10:40 Proposed Procedures p Pacemaker Exchange(Not Applicable) - Ayush Bauman MD Familial anesthetic complications: none Was Beta Debbi taken within 24 hours: N/A Was Clonidine taken within 24 hours: N/A Exam alert, oriented x 3, clear to auscultation bilaterally and regular rate & rhythm Airway Submandibular: within normal limits Cervical ROM: within normal limits Mallampati: Class I Dentition: false Pulmonary Chronic Obstructive Pulmonary Disease, Exertional Dyspnea, Sleep Apnea (Only wears CPAP on occassion ) and Shortness of Breath CV/HEM Atrial Fibrillation (Afib w/ presyncope ), Arrythmia and Hypertension correction anti coagulant use MVP Sick sinus syndrome Cath Report 09/2020 Conclusions ? 1. Mild aortic stenosis with mean gradient of 13mmHg. ? 2. Elevated LVEDP. ? 3. No significant disease noted in the Left Main, LAD, Circumflex, or RCA coronary arteries. Recommendations ? * Aggressive risk factor modification. ? * Given elevated LVEDP, we will initiate Lasix for 2 weeks. TTE 08/2020 ?CONCLUSIONS ?LV systolic function is normal with EF of 55-60% ?Diastolic function is normal ?Pacemaker wire is present in RA and RV ?Compared to prior study from 11/24/2014, no significant changes ?are noted None reported Hepatic None reported GI Gastroesophageal Reflux Disease Metabolic Diabetes Mellitus and Morbid Obesity [facility] Osteoarthritis/DJD Cervicalgia Facet arthritis DDD Spondylosis Neuropsych Cerebrovascular Accident (No residual seqeluae ) Anesthetic Plan ASA status: 3 Anesthesia: Anesthesia Evaluation, General and MAC Other: We discussed risk and benefits of general anesthesia including PONV, sore throat (sometimes severe), corneal abrasion, positioning and peripheral nerve injuries, life threatening allergic reaction, post operative ICU admission requiring prolonged intubation, stroke, heart attack, , and rare incidences of recall. I discussed with the patient risks, goals, and benefits of MAC and general anesthesia. We discussed spectrum of MAC anesthesia including conversion to general as well as possibility of recall of intraoperative stimuli including discomfort/pain. Patient agrees to proceed with MAC with conversion to general if needed. Risk of > 500 ml blood loss (7ml/kg in children): No Medications/Allergies Home Medications Medication Instructions Recorded Confirmed Last Taken Type glucometer test strips #90 each 05/18/20 01/19/22 Unknown Rx C-PAP #1 ea 03/21/21 01/19/22 Unknown Rx cholecalciferol (vitamin D3) 1,250 50,000 unit PO .qweek #14 cap 08/25/21 02/07/22 Unknown Rx mcg (50,000 unit) capsule albuterol sulfate 90 mcg/actuation 2 puff INHALATION Q6H PRN #8.5 g 11/28/21 02/07/22 Unknown Rx aerosol inhaler (ProAir HFA) pantoprazole 40 mg tablet,delayed 40 mg PO DAILY #30 tab 01/09/22 02/07/22 Unknown Rx release (Protonix) citalopram 20 mg tablet 20 mg PO DAILY 02/07/22 02/07/22 Unknown History dabigatran etexilate 150 mg 150 mg PO DAILY 02/07/22 02/07/22 Unknown History capsule (Pradaxa) diltiazem HCl 120 mg 120 mg PO DAILY 02/07/22 02/07/22 Unknown History capsule,extended release 24 hr Allergies Allergy/AdvReac Type Severity Reaction Status Date / Time latex Allergy itchy/red Verified 01/19/22 08:45 skin PFSH Anesthesia Medical History Anticoagulant long-term use Pradaxa ASHD (arteriosclerotic heart disease) Diabetes Fibromyalgia GERD (gastroesophageal reflux disease) HTN (hypertension) MVP (mitral valve prolapse) MARIEL (obstructive sleep apnea) Paroxysmal atrial fibrillation PSVT (paroxysmal supraventricular tachycardia) Sick sinus syndrome Spondylosis without myelopathy or radiculopathy, lumbar region TIA (transient ischemic attack) Surgical History H/O adenoidectomy S/P cholecystectomy S/P tonsillectomy Status cardiac pacemaker Family History Mother CAD (coronary artery disease) Father CAD (coronary artery disease) Other Cancer Diabetes Social History Smoking and tobacco status: never smoked Second hand smoke exposure: No Smoking risk assessment/counseling performed?: No Alcohol intake: current Alcohol intake frequency: holidays/special occasions only Desire information about alcohol rehabilitation?: No Counseling given: No Desire information about substance/drug rehabilitation?: No Counseling given: No Household members: none Marital status: History of recent travel: No Data Anesthesia : 02/07/22 13:54 02/07/22 13:54 Short CBC 02/07/22 Range/Units 13:54 WBC 9.4 (4.0-10.0) 10^3/uL Hgb 14.9 (11.5-15.3) g/dL Hct 46.5 (37.0-47.0) % MCV 82.6 (81-99) fl Plt Count 233 (130-400) 10^3/cmm Neut % (Auto) 60.4 % Neut # (Auto) 5.66 (1.8-7.7) 10^3/uL BMP 02/07/22 13:54 Sodium 142 Potassium 4.0 Chloride 103 Carbon Dioxide 31 H BUN 10 Creatinine 0.6 Glucose 99 Calcium 9.3 Urine 02/07/22 Range/Units 13:45 Urine Color Yellow (Yellow) Urine Appearance Clear (CLEAR) Urine pH 5 (5-7) Ur Specific Raymond 1.025 (1.005-1.030) Urine Protein Neg (Negative) Urine Glucose (UA) Norm (Normal) Urine Ketones Negative (Negative) Urine Nitrate Negative (Negative) Urine Bilirubin Neg (Negative) Ur Leukocyte Esterase Negative (Negative) Cardiac Studies: Echocardiogram Ultrasound 09/19/20 Sestamibi Stress Test (Cardiology) 09/19/20
--- NOTE | 2022-02-13 08:02 | P.ANESUD_ITS ---
Pre-Anesthetic Update Pre-Anesthetic Assessment: Date of Surgery/Procedure: 02/13/22 Preop Jenae gnosis: pacemaker end of service Proposed Procedure: Operation Date: 02/13/22 10:35 Proposed Procedures p Pacemaker Exchange(Not Applicable) - Ayush Bauman MD Any changes to Pre-Anesthetic Assessment?: No Exam: Pre-Anes Outpt Exam: alert, oriented x 3, clear to auscultation bilaterally and regular rate & rhythm Cardiac Studies: Echocardiogram Ultrasound 09/19/20 Sestamibi Stress Test (Cardiology) 09/19/20
[2022-02-13 08:06] VITALS: BP 124/105; PULSE 81; RESP 18; TEMP 36.5; O2SAT 96
[2022-02-13] MEDS: sodium chloride 0.9% 1,000 ML 30 ML IV (09:00)
--- NOTE | 2022-02-13 11:36 | P.HPUD_ITS ---
Surgery/Procedure H&P Update DATE OF PROCEDURE: February 13, 2022 DATE H&P PERFORMED: 01/19/22 H&P UPDATE INFORMATION: I have reviewed H&P completed within last 30 days, I have examined patient prior to procedure and Changes to prior documentation as noted here CHANGES TO PREVIOUS DOCUMENTATION: There are no changes from physical exam. On questioning, Ms. Abbasi states that she actually has developed what sounds to be diaphragmatic stimulation beginning in late November and extending through December. Upon review of her pacemaker record, it is noted that she did have a mode change as her pacemaker became further depleted and switched to VVI. It is noted that she has a high threshold with her ventricular lead though it is rarely used in her normal functioning mode and has been noted on the last report to have been used less than 0.01% of the time. After discussion with our [employer] graphic art sales representative, I feel that we should perform a pacemaker generator change and at this time not attempt to replace the ventricular lead. If she continues to have further difficulties with diaphragmatic stimulation, this will necessitate further action. I discussed this carefully with Ms. Lopez, and she was enthusiastic to try to limit the surgical procedure. PREOP DIAGNOSIS: pacemaker end of service PRIMARY INDICATION FOR PROCEDURE: Pacemaker generator at end of service PLANNED PROCEDURE: Operation Date: 02/13/22 10:35 Proposed Procedures p Pacemaker Exchange(Not Applicable) - Ayush Bauman MD
[2022-02-13] MEDS: ceFAZolin 1,000 mg SDV 1000 MG IRRIGATION (11:55)
[2022-02-13] MEDS: lidocaine 2% INJ 20 mL INJECTION (11:55)
[2022-02-13 12:35] VITALS: BP 95/63; PULSE 83; RESP 16; TEMP 36.5; O2SAT 92
--- NOTE | 2022-02-13 12:37 | PM.OP ---
Operative Report Date of procedure: February 13, 2022 Pre-op diagnosis: Preop Diagnosis pacemaker end of service Post-op diagnosis: same Procedure done: Pacemaker generator exchange Specimens removed/disposition: Old Medtronic dual-lead pacemaker delivered to pacemaker technical services representative Pathology: none sent Surgeon: Ayush Bauman Complications: None Disposition: same day Brief History: Ms. Abbasi is a pleasant, obese, 66-year-old female with a dual-lead pacemaker implanted in 2010. Pacemaker is now at end of service and generator exchange has been recommended. Details of risk the procedure were carefully and frankly discussed. Appropriate consents have been reviewed and signed. Procedure: Patient was appropriately positioned and sterilely prepped and draped. IV consicious sedation was given with anesthesia monitoring. 1% lidocaine was infiltrated through the prior insertion incision site. # 15 scalpel blade was used to incise the skin down to subcutaneous layer. Subsequently, using sharp and blunt dissection the pseudocapsule to the old generator was reached and opened with a scalpel blade. This area was then enhanced utilizing Metzenbaum scissors with care taken not to injure the pacing leads. Once the pocket was adequate opened, hemostats were utilized to deliver the old generator. Set screws were released and the leads were removed and inserted properly into the new generator with set screws then secured. The old generator was removed from the field. The incision was irrigated with antibiotic solution. Hemostasis was confirmed. The new generator was placed back into the old subcutaneous pocket. The wound was then closed in 2 layers of 3-0 Vicryl suture. Skin was closed in a subcuticular manner with 4-0 undyed Vicryl suture. A 2 layer pressure dressing was then applied. The entire system was interrogated and appropriate parameters obtained with no increasing threshold of the RV lead currently at 2.25 V. Historically she has utilized her ventricular lead less than 0 0.1%. The new Medtronic generator is model W1 DR 01 serial number: [id number]
[2022-02-13 12:40] VITALS: BP 119/76; PULSE 85; RESP 18; O2SAT 92
--- NOTE | 2022-02-13 12:41 | SUR.PHASEI ---
1234 PT TO PACU 4 AWAKE ALERT TALKATIVE, PT DENIES PAIN AND NAUSEA LT SUBCLAVIAN SITE PRESSURE DRESSING D/I 1244 [PT AWAKE ALERT, TALKATIVE, PT WITHOUT COMPLAINT. PT TAKING ICE CHIPS VSS.
[2022-02-13 12:46] VITALS: BP 103/70; PULSE 79; RESP 16; TEMP 36.2; O2SAT 95
[2022-02-13 13:30] VITALS: BP 133/93; PULSE 86; RESP 18; O2SAT 97
--- NOTE | 2022-02-13 17:44 | ANE.PACU2 ---
Inpatient post-anesthesia follow up: Airway intact: Yes Vital signs: Temperature 97.1 F Pulse Rate 86 Respiratory Rate 18 Blood Pressure 133/93 Pulse Oximetry 97 Oxygen Delivery Me thod Room Air Oxygen Flow Rate Fraction of Inspir ed Oxygen Hydration adequate: Yes Nausea and vomiting: No Pain level: 1 Mental status: Baseline
== END 2022-02-13 13:40 | disposition home or self-care (01) ==
PROVIDERS: PCP Family Medicine; Visit Provider Thoracic Surgery (Cardiothoracic Vascular Surgery)
PROC: 0JPT0PZ Removal of Cardiac Rhythm Related Device from Trunk Subcutaneous Tissue and Fascia, Open Approach (ICD-10-PCS; CPT 33228; principal; 2022-02-13 10:25)
DX: Z45.010 Encounter for checking and testing of cardiac pacemaker pulse generator [battery] (principal); J44.9 Chronic obstructive pulmonary disease, unspecified; I10 Essential (primary) hypertension; Z79.01 Long term (current) use of anticoagulants; K21.9 Gastro-esophageal reflux disease without esophagitis; Z82.49 Family history of ischemic heart disease and other diseases of the circulatory system; I25.10 Atherosclerotic heart disease of native coronary artery without angina pectoris; E11.9 Type 2 diabetes mellitus without complications; M79.7 Fibromyalgia; G47.33 Obstructive sleep apnea (adult) (pediatric); I48.0 Paroxysmal atrial fibrillation; Z86.73 Personal history of transient ischemic attack (TIA), and cerebral infarction without residual deficits
CPT/HCPCS: 33228; 36415; 80048; 81003; 85025; C1786; J0690; J2704; J3010; J7030

== ENCOUNTER → 2022-02-19 09:29 | Outpatient (BNVA) | payer MEDICARE, MEDICAID, SELFPAY | PROVIDERS: PCP Family Medicine; Visit Provider Nurse Practitioner Family | DX: Z09 Encounter for follow-up examination after completed treatment for conditions other than malignant neoplasm (principal); Z95.0 Presence of cardiac pacemaker | CPT/HCPCS: 99213; 99214 ==

== ENCOUNTER → 2022-02-27 15:42 | Outpatient (BNVA) | payer MEDICARE, MEDICAID, SELFPAY | PROVIDERS: PCP Family Medicine; Visit Provider Family Medicine | DX: Z11.1 Encounter for screening for respiratory tuberculosis (principal); Z11.9 Encounter for screening for infectious and parasitic diseases, unspecified | CPT/HCPCS: 71046; 86762; 86787 ==

== ENCOUNTER → 2022-03-12 14:59 | Outpatient (BNVA) | payer MEDICARE, MEDICAID, SELFPAY | PROVIDERS: PCP Family Medicine; Visit Provider Family Medicine | DX: Z11.9 Encounter for screening for infectious and parasitic diseases, unspecified (principal) | CPT/HCPCS: 86735; 86765 ==

== ENCOUNTER → 2022-03-23 10:28 | Outpatient (BNVA) | payer MEDICARE, MEDICAID, SELFPAY | PROVIDERS: PCP Family Medicine; Visit Provider Internal Medicine | DX: I25.10 Atherosclerotic heart disease of native coronary artery without angina pectoris (principal); I35.0 Nonrheumatic aortic (valve) stenosis; I47.1 Supraventricular tachycardia; I48.0 Paroxysmal atrial fibrillation; I49.5 Sick sinus syndrome; Z86.73 Personal history of transient ischemic attack (TIA), and cerebral infarction without residual deficits; Z95.0 Presence of cardiac pacemaker; G47.33 Obstructive sleep apnea (adult) (pediatric); E11.9 Type 2 diabetes mellitus without complications; I10 Essential (primary) hypertension | CPT/HCPCS: 93280; 99213; 99214 ==

== ENCOUNTER → 2022-10-02 13:42 | Outpatient (BNVA) | payer MEDICARE, MEDICAID, SELFPAY | PROVIDERS: PCP Family Medicine; Visit Provider Internal Medicine | DX: I25.10 Atherosclerotic heart disease of native coronary artery without angina pectoris (principal); Z86.73 Personal history of transient ischemic attack (TIA), and cerebral infarction without residual deficits; I35.0 Nonrheumatic aortic (valve) stenosis; I47.1 Supraventricular tachycardia; I48.0 Paroxysmal atrial fibrillation; I49.5 Sick sinus syndrome; Z95.0 Presence of cardiac pacemaker; G47.33 Obstructive sleep apnea (adult) (pediatric); E11.9 Type 2 diabetes mellitus without complications; I10 Essential (primary) hypertension | CPT/HCPCS: 99214 ==

== ENCOUNTER → 2023-04-05 09:08 | Outpatient (BNVA) | payer MEDICARE, MEDICAID, SELFPAY | PROVIDERS: PCP Family Medicine; Visit Provider Internal Medicine | DX: I25.10 Atherosclerotic heart disease of native coronary artery without angina pectoris (principal); I35.0 Nonrheumatic aortic (valve) stenosis; I47.1 Supraventricular tachycardia; I48.0 Paroxysmal atrial fibrillation; Z95.0 Presence of cardiac pacemaker; G47.33 Obstructive sleep apnea (adult) (pediatric); E11.9 Type 2 diabetes mellitus without complications; I10 Essential (primary) hypertension; Z86.73 Personal history of transient ischemic attack (TIA), and cerebral infarction without residual deficits | CPT/HCPCS: 99214 ==

== ENCOUNTER → 2023-05-07 17:30 | Outpatient (BNVA) | payer MEDICARE, MEDICAID, SELFPAY | PROVIDERS: PCP Family Medicine; Visit Provider Family Medicine | DX: K21.9 Gastro-esophageal reflux disease without esophagitis (principal); I48.0 Paroxysmal atrial fibrillation; E11.9 Type 2 diabetes mellitus without complications; I10 Essential (primary) hypertension | CPT/HCPCS: 80053; 80061; 83036; 84443; 85025 ==

== ENCOUNTER → 2023-08-05 12:52 | Outpatient (BNVA) | payer MEDICARE, MEDICAID, SELFPAY | PROVIDERS: PCP Family Medicine; Visit Provider Nurse Practitioner Family | DX: L82.1 Other seborrheic keratosis (principal); D22.5 Melanocytic nevi of trunk; L85.3 Xerosis cutis; L40.0 Psoriasis vulgaris | CPT/HCPCS: 99203 ==

== ENCOUNTER → 2023-11-29 10:11 | Outpatient (BNVA) | payer MEDICARE, MEDICAID, SELFPAY | PROVIDERS: PCP Family Medicine; Visit Provider Internal Medicine Cardiovascular Disease | DX: I10 Essential (primary) hypertension (principal); I25.10 Atherosclerotic heart disease of native coronary artery without angina pectoris; I34.1 Nonrheumatic mitral (valve) prolapse; Z95.0 Presence of cardiac pacemaker; I48.0 Paroxysmal atrial fibrillation; Z79.01 Long term (current) use of anticoagulants; I35.0 Nonrheumatic aortic (valve) stenosis; E66.01 Morbid (severe) obesity due to excess calories; Z68.41 Body mass index [BMI] 40.0-44.9, adult; E11.9 Type 2 diabetes mellitus without complications | CPT/HCPCS: 99214 ==

== ENCOUNTER 2024-03-18 10:21 | Outpatient (CLI) | payer MEDICARE, MEDICAID, SELFPAY ==
--- NOTE | 2024-03-18 10:23 | MM_ITS ---
WS: [id number] VIEWS: MLO and CC views both breasts. 3D digital tomosynthesis is also included in this exam. Comparison made with prior exam of 05/05/2009, 12/07/2017, 07/21/2020, Findings: There was no sign of mass, architectural distortion or suspicious calcification in either breast. The re are scattered areas of fibroglandular density MM/[place] [id number] Impression: BI-RADS: 1-Negative FOLLOW-UP: 1 Year Follow-up This mammogram was also analyzed by the Computer Aided Detection System R2 Imag e [employer].
== END 2024-03-18 10:22 | disposition home or self-care (01) ==
PROVIDERS: PCP Family Medicine; Visit Provider Family Medicine
DX: Z12.31 Encounter for screening mammogram for malignant neoplasm of breast (principal); R92.323 Mammographic fibroglandular density, bilateral breasts
CPT/HCPCS: 77063; 77067

== ENCOUNTER → 2024-07-14 13:03 | Outpatient (BNVA) | payer MEDICARE, MEDICAID, SELFPAY | PROVIDERS: PCP Family Medicine; Visit Provider Family Medicine | DX: I10 Essential (primary) hypertension (principal); K21.9 Gastro-esophageal reflux disease without esophagitis; E55.9 Vitamin D deficiency, unspecified | CPT/HCPCS: 80053; 80061; 82306; 84443; 85025 ==

== ENCOUNTER 2024-08-29 11:05 | Emergency (ER) | payer MEDICARE, MEDICAID, SELFPAY ==
[2024-08-29 11:14] VITALS: BP 161/111; PULSE 94; RESP 20; TEMP 37.4; O2SAT 97; BMI 40.3
--- NOTE | 2024-08-29 11:22 | XRR_ITS ---
PROCEDURE INFORMATION: Exam: XR Chest Exam date and time: 08/29/2024 11:43 AM Age: 68 years old Clinical indication: Chest pressure; Prior surgery; Surgery date: 6+ months; Surgery type: Pacemaker; Patient HX: Chest pain TECHNIQUE: Imaging protocol: Radiologic exam of the chest. Views: 1 view. COMPARISON: CR XR chest 2V* [id number] 02/27/2022 3:47 PM FINDINGS: Tubes, catheters and devices: Dual lead cardiac pacemaker with left chest generator. Lungs: Unremarkable. No consolidation. Pleural spaces: Unremarkable. No pleural effusion. No pneumothorax. Heart/Mediastinum: Unremarkable. No cardiomegaly. Vasculature: Aortic arch atherosclerotic calcification. Bones/joints: Thoracic spondylosis. XR/XR chest 1V portable [id number] IMPRESSION: No acute findings.
--- NOTE | 2024-08-29 11:35 | W.ED.GENADLT ---
HPI - General Adult General: Chief complaint: General Medical Stated complaint: right side pain, hurts when breathing Time Seen by Provider: 08/29/24 11:14 History of Present Illness: 68-year-old female with a history of SVT and pacemaker placement, hypertension and fibromyalgia presents emergency room with right lateral rib pain. She says she has been coughing a little more than usual and it hurts when she coughs. It also hurts when she moves. No dysuria. No fevers. She is not more short of breath than usual. She says she came to the emergency room today because last night she was up and down all night with the pain. She been taking [id number] medications which have not been helping. Related Data Home Medications Medication Instructions Recorded Confirmed diltiazem HCl 120 mg 120 mg PO DAILY 08/29/24 08/29/24 capsule,extended release 24 hr pantoprazole 40 mg tablet,delayed 40 mg PO DAILY 08/29/24 08/29/24 release Previous Rx's Medication Instructions Recorded glucometer test strips #90 ea 05/18/20 C-PAP #1 ea 03/21/21 blood sugar diagnostic (Blood #50 ea 05/07/23 Glucose Test strips) blood-glucose meter #1 ea 05/07/23 albuterol sulfate 90 mcg/actuation See Rx Instructions .Route 07/14/24 aerosol inhaler .COMPLEX #8.5 grams citalopram 20 mg tablet 20 mg PO DAILY #90 tabs 07/14/24 ergocalciferol (vitamin D2) 1,250 1,250 mcg PO .weekly #12 caps 07/14/24 mcg (50,000 unit) capsule rivaroxaban 10 mg tablet (Xarelto) 10 mg PO DAILY #90 tabs 07/14/24 azithromycin 250 mg tablet See Rx Instructions PO .COMPLEX #6 08/29/24 (Zithromax Z-Last) tabs dexamethasone 6 mg tablet 6 mg PO DAILY 5 days #5 tabs 08/29/24 diclofenac sodium 50 mg 50 mg PO BID PRN pain #14 tabs 08/29/24 tablet,delayed release hydrocodone 5 mg-acetaminophen 325 1 tab PO Q8H PRN pain #14 tabs 08/29/24 mg tablet polyethylene glycol 3350 17 17 g PO DAILY #510 grams 08/29/24 gram/dose oral powder (Miralax) Allergies Allergy/AdvReac Type Severity Reaction Status Date / Time latex Allergy itchy/red Verified 08/29/24 11:24 skin Review of Systems Narrative: Constitutional symptoms: Negative except as documented in HPI. Skin symptoms: Negative except as documented in HPI. Eye symptoms: Negative except as documented in HPI. ENMT symptoms: Negative except as documented in HPI. Respiratory symptoms: Negative except as documented in HPI. Cardiovascular symptoms: Negative except as documented in HPI. Gastrointestinal symptoms: Negative except as documented in HPI. Genitourinary symptoms: Negative except as documented in HPI. Musculoskeletal symptoms: Negative except as documented in HPI. Neurologic symptoms: Negative except as documented in HPI. Psychiatric symptoms: Negative except as documented in HPI. Endocrine symptoms: Negative except as documented in HPI. PFSH ED PFSH: Medical History Spondylosis without myelopathy or radiculopathy, lumbar region GERD (gastroesophageal reflux disease) PSVT (paroxysmal supraventricular tachycardia) Paroxysmal atrial fibrillation Sick sinus syndrome TIA (transient ischemic attack) Fibromyalgia MARIEL (obstructive sleep apnea) MVP (mitral valve prolapse) Anticoagulant long-term use Pradaxa Diabetes ASHD (arteriosclerotic heart disease) HTN (hypertension) Surgical History H/O adenoidectomy S/P tonsillectomy S/P cholecystectomy Status cardiac pacemaker Family History Mother CAD (coronary artery disease) Father CAD (coronary artery disease) Other Cancer Diabetes Social History Smoking and tobacco/nicotine status: never used tobacco/nicotine Second hand smoke exposure: No Alcohol intake: current Alcohol intake frequency: holidays/special occasions only Substance/Drug Use: never Caregiver/support person: No Lives independently: Yes Household members: none Marital status: service: No Current occupational status: disabled Do you think of yourself as: Straight/Heterosexual Current gender identity: Female Special edda needs: No Physical Exam Narrative: EXAM NARRATIVE: General: Alert, no acute distress. Skin: Warm, dry. Head: Normocephalic, atraumatic. Neck: Supple, trachea midline. Eye: Extraocular movements are intact. Ears, nose, mouth and throat: mucosa moist. Cardiovascular: Regular, Normal peripheral perfusion. Respiratory: Lungs are clear to auscultation, respirations are non-labored, breath sounds are equal, Symmetrical chest wall expansion. Some tenderness of the lateral right ribs. Gastrointestinal: Soft, Nontender, Non distended Musculoskeletal: Normal ROM, no deformity. Neurological: Alert and oriented, No focal neurological deficit observed. Psychiatric: Cooperative, appropriate mood & affect. Course Vital Signs: Vital signs: Vital Signs Temperature 99.4 F 08/29/24 11:14 Pulse Rate 75 08/29/24 12:28 Respiratory Rate 14 08/29/24 12:28 Blood Pressure 156/96 08/29/24 12:28 Pulse Oximetry 95 08/29/24 12:28 Oxygen Delivery Me thod Room Air 08/29/24 11:14 MDM - General Adult Medical Decision Making Chest x-ray: Pacemaker is in place. No acute process. No infiltrate. No pneumothorax. This was reviewed and interpreted by myself the ER physician. Assessment and plan: Rib pain ? IM Decadron and p.o. [place] in the emergency room. - Discharged home - Discussed plan with patient. Answered any questions. - Evaluation and treatment of this problem were appropriate in the emergency setting. Lab Data Radiology Impressions Chest X-Ray 08/29/24 11:22 IMPRESSION: No acute findings. All radiology interpretation(s) finalized by discharge Discharge Plan Discharge Patient Disposition: Home Clinical Impression: Rib pain Condition: Stable Prescriptions: New azithromycin [Zithromax Z-Last] 250 mg tablet See Rx Instructions .ROUTE .COMPLEX Qty: 6 0RF Rx Instructions: For 250 mg dose pack: take 500 mg today (day 1), then 250 mg for 4 days (days 2-5) hydrocodone-acetaminophen 5-325 mg tablet 1 tab PO Q8H PRN (Reason: pain) Qty: 14 0RF Rx Instructions: Take 1/2 to 1 tab every 8 hours as needed for pain dexamethasone 6 mg tablet 6 mg PO DAILY 5 Days Qty: 5 0RF diclofenac sodium 50 mg tablet,delayed release (DR/EC) 50 mg PO BID PRN (Reason: pain) Qty: 14 0RF polyethylene glycol 3350 [Miralax] 17 gram/dose powder 17 g PO DAILY Qty: 510 0RF Rx Instructions: Take 1 scoop daily while taking pain medications. No Action (DME) glucometer test strips See Rx Instructions .Route .MEDSUPPLY Qty: 90 3RF Rx Instructions: check blood sugar daily as directed albuterol sulfate 90 mcg/actuation HFA aerosol inhaler See Rx Instructions .ROUTE .COMPLEX Qty: 8.5 3RF Dose Instruction: inhale 2 puffs into lungs EVERY 6 HOURS NEEDED FOR SHORTNESS OF BREATH OR wheezing Rx Instructions: inhale 2 puffs into lungs EVERY 6 HOURS NEEDED FOR SHORTNESS OF BREATH OR wheezing citalopram 20 mg tablet 20 mg PO DAILY Qty: 90 2RF Xarelto 10 mg tablet 10 mg PO DAILY Qty: 90 2RF Rx Instructions: ONCE DAILY ergocalciferol (vitamin D2) 1,250 mcg (50,000 unit) capsule 1,250 mcg PO .weekly Qty: 12 3RF (DME) blood-glucose meter Kit See Rx Instructions .Route Qty: 1 0RF Rx Instructions: As directed (DME) Blood Glucose Test Strip See Rx Instructions .Route Qty: 50 0RF Rx Instructions: As directed for bid testing (DME) C-PAP See Rx Instructions .Route .MEDSUPPLY Qty: 1 0RF Rx Instructions: As directed; Auto titration 10-14 DEBBIE 99 pantoprazole 40 mg tablet,delayed release (DR/EC) 40 mg PO DAILY diltiazem HCl 120 mg capsule,extended release 24hr 120 mg PO DAILY Discharge Orders: Discharge ED (Routine); Ordered 08/29/24 Ordered By: Teri Mejia Referrals: Gail Reddy MD [Primary Care Provider] - Discharge Diet: Usual diet Discharge Activity: Increase activity as tolerated Patient Instructions: Opioid Safety, Pain Management Activity Restrictions/Additional Instructions: Thank you for choosing [facility] for your healthcare needs today. Please realize this is an emergency room and that we are providing you with a medical screening exam and this may not be complete and all inclusive of all the testing and or work up that you may need to determine your ailment or severity of your illness. You have been screened and evaluated and felt safe for discharge. Health conditions do change or evolve sometimes and as such it is important that you follow up with your Primary Doctor to be re checked, 3-5 days is a general good time frame for follow up. You are always welcome to return to the ED for re assessment if your symptoms are worsening or you have new concerns Coding Level of Care Code ED Community Resource Officer for Jeffrey Calderon
[2024-08-29] MEDS: dexamethasone 10 mg/mL INJ IM (12:16)
[2024-08-29] MEDS: HYDROcodone-acetaminophen 5-325 mg Tablet 1 TAB PO (12:16)
[2024-08-29 12:28] VITALS: BP 156/96; PULSE 75; RESP 14; O2SAT 95
== END 2024-08-29 12:27 | disposition home or self-care (01) ==
PROVIDERS: Emergency Provider Emergency Medicine; PCP Family Medicine
DX: R07.81 Pleurodynia (principal); Z86.73 Personal history of transient ischemic attack (TIA), and cerebral infarction without residual deficits; E11.9 Type 2 diabetes mellitus without complications; I25.10 Atherosclerotic heart disease of native coronary artery without angina pectoris; I10 Essential (primary) hypertension
CPT/HCPCS: 71045; 96372; 99284; J1100

== ENCOUNTER 2024-11-26 12:34 | Outpatient (CLI) | payer MEDICARE, MEDICAID, SELFPAY ==
--- NOTE | 2024-11-26 12:36 | XR_ITS ---
WS: [email or web address] Right hip, AP and frog-leg views, 11/26/2024 Clinical Data: M25.551 - Pain in right hip Comparison: SI joints, 03/22/2021 Findings: No fractures or dislocations are seen. The right hip joint shows no erosion, sclerosis, narrowing, cyst formation or fragmentation of the right femoral head. There is an acetabular lip.. The soft tissues are not remarkable. The adjacent pelvis is normal. XR/XR hip RT 2-3V wo/w pel* [id number] Impression: Minimal osteoarthritis of the right hip.
--- NOTE | 2024-11-26 12:36 | XR_ITS ---
WS: [email or web address] Lumbar spine, 3 views, 11/26/2024 Clinical Data: M54.5 - Low back pain Comparison: Lumbar spine, 03/22/2021 Findings: No compression fractures or subluxation is seen. There is degenerative disc narrowing at multiple lumbar levels, T12-L1, L2-L3 and L5-S1. There is anterior spurring L1-L3 and of the lower thoracic vertebral bodies. The transverse processes and SI joints are normal. XR/XR lumbar spine 2-3V* [id number] Impression: 1. Osteoarthritis of the L1-L3 vertebral bodies. 2. Multilevel degenerative disc narrowing.
== END 2024-11-26 12:35 | disposition home or self-care (01) ==
LOC: RAD 12:35
PROVIDERS: PCP Nurse Practitioner Family; Visit Provider Nurse Practitioner Family
DX: M25.551 Pain in right hip (principal); R93.7 Abnormal findings on diagnostic imaging of other parts of musculoskeletal system; M51.35 Other intervertebral disc degeneration, thoracolumbar region; M51.369 Other intervertebral disc degeneration, lumbar region without mention of lumbar back pain or lower extremity pain; M51.379 Other intervertebral disc degeneration, lumbosacral region without mention of lumbar back pain or lower extremity pain; M47.896 Other spondylosis, lumbar region
CPT/HCPCS: 72100; 73502

== ENCOUNTER → 2025-04-06 14:54 | Outpatient (BNVA) | payer MEDICARE, MEDICAID, SELFPAY | PROVIDERS: Family Provider Nurse Practitioner Family; PCP Nurse Practitioner Family; Visit Provider Nurse Practitioner Family | DX: E11.9 Type 2 diabetes mellitus without complications (principal); I10 Essential (primary) hypertension | CPT/HCPCS: 80053; 80061; 83036; 84443; 85025 ==

== ENCOUNTER → 2025-05-19 12:03 | Outpatient (BNVA) | payer MEDICARE, MEDICAID, SELFPAY | PROVIDERS: Family Provider Nurse Practitioner Family; PCP Nurse Practitioner Family; Visit Provider Nurse Practitioner Family | DX: L40.9 Psoriasis, unspecified (principal); R53.83 Other fatigue | CPT/HCPCS: 82306; 82607 ==

== ENCOUNTER 2025-05-31 10:02 | Outpatient (CLI) | payer MEDICARE, MEDICAID, SELFPAY ==
--- NOTE | 2025-05-31 10:30 | US_ITS ---
WS: [id number] Complete ABDOMINAL ULTRASOUND HISTORY: R19.00 - Intra-abdominal and pelvic swelling, mass and melba... COMPARISON: 02/20/2018 Liver: 18.5 cm in length. Mildly enlarged liver. Coarse echotexture. Deep liver towards the diaphragm is completely obscured. No mass identified in the visualized liver. Portal Vein: Normal hepatopetal flow with monophasic waveform. Gallbladder: Prior cholecystectomy. CBD: 0.7 cm Pancreas: Poorly visualized. Right kidney: 11.0 cm x 6.4 x 4.5 cm. Cortex:1.5 cm. Normal size and echogenicity. No hydronephrosis or mass. Left kidney: 9.9 cm x 5.3 cm x 4.8 cm. Cortex: 1.5 cm. Normal size and echogenicity. No hydronephrosis or mass. Spleen: 11.2 cm. Normal size and echogenicity. Aorta and IVC: Unremarkable abdominal aorta and IVC. Along the RIGHT lateral abdominal wall in the area of clinical concern no abnormalities identified. No hernia. US/US abdomen complete* [id number] Impression: 1. Prior cholecystectomy. 2. Hepatic steatosis. Liver is top normal size and incompletely visualized. 3. No hydronephrosis. 4. No abdominal wall abnormality identified by ultrasound. Consider evaluation by CT.
== END 2025-05-31 10:03 | disposition home or self-care (01) ==
LOC: RAD 10:05
PROVIDERS: Family Provider Nurse Practitioner Family; PCP Nurse Practitioner Family; Visit Provider Nurse Practitioner Family
DX: R19.00 Intra-abdominal and pelvic swelling, mass and lump, unspecified site (principal); K76.0 Fatty (change of) liver, not elsewhere classified; Z90.49 Acquired absence of other specified parts of digestive tract
CPT/HCPCS: 76700

== ENCOUNTER → 2025-06-14 14:14 | Outpatient (BNVA) | payer MEDICARE, MEDICAID, OTHER, SELFPAY | PROVIDERS: Family Provider Nurse Practitioner Family; PCP Nurse Practitioner Family; Visit Provider Internal Medicine | DX: R42 Dizziness and giddiness (principal); I48.0 Paroxysmal atrial fibrillation; Z79.01 Long term (current) use of anticoagulants; I10 Essential (primary) hypertension; I25.10 Atherosclerotic heart disease of native coronary artery without angina pectoris; I34.1 Nonrheumatic mitral (valve) prolapse; I49.5 Sick sinus syndrome; I47.10 Supraventricular tachycardia, unspecified; I35.0 Nonrheumatic aortic (valve) stenosis; E66.9 Obesity, unspecified; Z68.41 Body mass index [BMI] 40.0-44.9, adult; E11.9 Type 2 diabetes mellitus without complications; Z79.85 Long-term (current) use of injectable non-insulin antidiabetic drugs; Z95.0 Presence of cardiac pacemaker; Z86.73 Personal history of transient ischemic attack (TIA), and cerebral infarction without residual deficits | CPT/HCPCS: 99214 ==

== ENCOUNTER 2025-06-25 12:17 | Outpatient (CLI) | payer MEDICARE, MEDICAID, SELFPAY ==
[2025-06-25] MEDS: iohexol 350 mg/mL 500 mL Btl (per mL) IV (13:14)
[2025-06-25] MEDS: iohexol 350 mg/mL 500 mL Btl (per mL) PO (13:14)
--- NOTE | 2025-06-25 13:30 | CT_ITS ---
WS: [id number] CT ABDOMEN AND PELVIS WITH CONTRAST HISTORY: R19.00 - Intra-abdominal and pelvic swelling, mass and melba... TECHNIQUE: Imaging performed of the abdomen and pelvis with IV contrast. Single phase imaging of the abdomen. Coronal and sagittal reformats are submitted. All CT scans at [facility] use at least one of these dose optimization techniques: automated exposure control; mA and/or kV adjustment per patient size (includes targeted exams where dose is matched to clinical indication); or iterative reconstruction. IV CONTRAST: Omnipaque 350; 100 mL IV. Oral contrast: Yes. DLP: 859.23 mGy.cm COMPARISON: 07/06/2020 Lower thorax: Lung bases are clear. Normal size heart. Cardiac pacer wires are noted in the RIGHT heart. Small hiatal hernia. Liver/biliary system: Mild hepatomegaly. Mild diffuse hepatic steatosis. No intrahepatic duct dilatation. Normal portal vein. Gallbladder: Prior cholecystectomy. Pancreas: Normal size pancreas and pancreatic duct. No adjacent inflammation. Spleen: Normal size spleen. No mass or infarct. Adrenal glands: Normal. Right kidney: Nonobstructing 2 mm calcification lower pole. No hydrocephalus. Left kidney: Normal. Aorta: Mild atherosclerosis aorta. Lymphadenopathy: None. Several small lymph nodes were noted at the celiac axis. Also present on the prior study from 07/06/2020. Free fluid: None. GI tract: No GI tract obstruction. No colitis. Prior appendectomy. There are a few sigmoid diverticula without acute diverticulitis. Abdominal wall: Fat containing umbilical hernia. Pelvis: No free fluid or adenopathy within the pelvis. Bones: Unremarkable. CT/CT abdomen pelvis w con* [id number] IMPRESSION: 1. No acute abdominal or pelvic abnormalities are identified. 2. Mild hepatic steatosis and hepatomegaly. 3. No GI tract obstruction. 4. No ascites. No adenopathy. 5. Prior cholecystectomy.
[2025-06-25 13:55] LABS: Blood Urea Nitrogen 11 mg/dL (8-23)
== END 2025-06-25 12:18 | disposition home or self-care (01) ==
LOC: RAD 12:18
PROVIDERS: Family Provider Nurse Practitioner Family; PCP Nurse Practitioner Family; Visit Provider Nurse Practitioner Family
DX: K42.9 Umbilical hernia without obstruction or gangrene (principal); K44.9 Diaphragmatic hernia without obstruction or gangrene; Z95.0 Presence of cardiac pacemaker; R16.0 Hepatomegaly, not elsewhere classified; K76.0 Fatty (change of) liver, not elsewhere classified; Z90.49 Acquired absence of other specified parts of digestive tract; N28.89 Other specified disorders of kidney and ureter; R59.1 Generalized enlarged lymph nodes; K57.30 Diverticulosis of large intestine without perforation or abscess without bleeding
CPT/HCPCS: 74177; 82565; 84520

== ENCOUNTER 2025-06-28 19:49 | Outpatient (CLI) | payer MEDICARE, MEDICAID, SELFPAY | END 2025-06-28 19:50 | disposition home or self-care (01) | LOC: SLEEP 19:51 | PROVIDERS: Family Provider Nurse Practitioner Family; PCP Nurse Practitioner Family; Visit Provider Internal Medicine Pulmonary Disease | DX: G47.33 Obstructive sleep apnea (adult) (pediatric) (principal) | CPT/HCPCS: 95810 ==

== ENCOUNTER → 2025-09-14 09:39 | Outpatient (BNVA) | payer MEDICARE, MEDICAID, SELFPAY | PROVIDERS: Family Provider Nurse Practitioner Family; PCP Nurse Practitioner Family; Visit Provider Nurse Practitioner Family | DX: E11.9 Type 2 diabetes mellitus without complications (principal); Z63.9 Problem related to primary support group, unspecified | CPT/HCPCS: 80053; 80061; 81000; 84443; 85025 ==

== ENCOUNTER → 2025-09-20 14:53 | Outpatient (BNVA) | payer MEDICARE, MEDICAID, SELFPAY | PROVIDERS: Family Provider Nurse Practitioner Family; PCP Nurse Practitioner Family; Visit Provider Nurse Practitioner Family | DX: R30.0 Dysuria (principal) | CPT/HCPCS: 81000; 87086 ==